=== PATIENT | female | born 1955 | race Caucasian/White ===

== ENCOUNTER 2017-11-17 17:18 | Inpatient (IN) | payer MEDICAID ==
[2017-11-17] MEDS ORDERED: ALBUTEROL 2.5 MG/3 ML NEB SOL ONE (18:11)
[2017-11-17] MEDS ORDERED: IPRATROPIUM BROM 0.5MG/2.5ML ONE (18:11)
[2017-11-17] MEDS ORDERED: NA CHLORIDE 0.9% 500 ML ONE (18:11)
[2017-11-17 18:29] LABS: Absolute Lymphocytes (CBC) 1.2 K/uL (0.7-4.9); Absolute Monocytes 0.4 K/uL (0.1-1.3); Absolute Neutrophil 3.1 K/uL (1.8-8.0); Basophils % 0.7 % (0-1.3); Eosinophils % 1.1 % (0-4.4); Lymphocytes % 25.8 % (15.3-44.8); MCH 30.3 pg (27.0-35.0); MCV 87.5 fL (80-100); MPV 9.1 fL (7.6-11.3); Monocytes % 7.6 % (3.3-12.3); Protime INR 1.07
[2017-11-17] MEDS ORDERED: ASPIRIN 81 MG CHEWABLE TABLET ONE (18:34)
[2017-11-17 18:46] LABS: Albumin 3.6 g/dL (3.4-5.0); Bilirubin Direct 0.1 mg/dL (0-0.2); Bilirubin Total 0.4 mg/dL (0.2-1.0); Potassium 3.5 mmol/L (3.5-5.1); Protein, Total 7.7 g/dL (6.4-8.2)
[2017-11-17 18:47] LABS: Troponin (Emerg Dept Use Only) 0.02 ng/mL (0.0-0.045)
[2017-11-17] MEDS ORDERED: cloNIDine HCl 0.1 MG TAB ONE (19:53)
--- NOTE | 2017-11-17 20:24 | RAD REPORT ---
EXAM DESCRIPTION: RAD - Chest Single View - 11/17/2017 5:57 pm CLINICAL HISTORY: Cough and congestion, fever COMPARISON: May 2011 TECHNIQUE: AP portable chest image was obtained 1753 hours . FINDINGS: No focal mass, consolidation or significant failure finding. Patient has chronic interstit ial lung disease. Interstitial markings are prominent and can mask mild failure or volume overload. H eart size is normal. Upper lobe vasculature within normal limits. No measurable pleural effusion and no pneumothorax. No acute bony abnormality seen. No acute aortic findings suspected. IMPRESSION: Chronic interstitial lung disease is evident similar to the May imaging. This could po tentially mask early failure or infiltrate. No cardiomegaly or significant failure. No focal lung parenchymal process.
--- NOTE | 2017-11-17 20:48 | EDPHYS ---
Physician Documentation [facility] Name: Vickie Meza Age: 62 yrs Sex: Female : 1955 Arrival Date: 11/17/2017 Time: 17:20 Bed 26 Private MD: ED Physician Alphonse Morales HPI: 11/17 17:50 This 62 yrs old Female presents to ER via Ambulatory with complaints of cp Fever, Chest Congestion. 17:50 The patient reports fever, that was measured at 104 degrees Fahrenheit. cp 17:50 Onset: The symptoms/episode began/occurred 1 day(s) ago. cp 17:50 Associated signs and symptoms: Pertinent positives: cough, Pertinent negatives: cp abdominal pain, chest pain, sinus congestion, swelling, vomiting. Severity of symptoms: in the emergency department the symptoms are unchanged despite home interventions. Historical: - Allergies: 17:24 PENICILLINS; sv 17:24 Morphine; sv 17:24 Valium; sv 17:24 Demerol; sv - Home Meds: 19:14 ProAir HFA 90 mcg/actuation inhalation HFAA 1 puff q 6 hr s prnjh [Active]; iw sulfasalazine 500 mg Oral tab 2 tab twice a day [Active]; hydrochlorothiazide 25 mg Oral tab 1 tab once daily [Active]; clonidine HCl 0.1 mg Oral tab 1 tab 3 times per day [Active]; metoprolol tartrate 25 mg Oral tab 1 tab 2 times per day [Active]; leflunomide 20 mg oral tab 1 tab once daily [Active]; gabapentin 300 mg oral cap 1 cap twice a day [Active]; oxybutynin chloride 5 mg Oral tab 1 tab 2 times per day [Active]; - PMHx: 17:24 COPD; Hypertension; Arthritis; sv - PSHx: 17:24 elbow; Cholecystectomy; Tubal ligation; sv - Immunization history:: Flu vaccine is not up to date. - Social history:: Smoking status: Patient/guardian denies using tobacco, the patient reports quitting approximately 2 years ago. - Ebola Screening: : No symptoms or risks identified at this time. ROS: 18:00 Constitutional: Negative for body aches, fever, poor PO intake. cp 18:00 Eyes: Negative for injury, pain, redness, and discharge. cp 18:00 ENT: Negative for drainage from ear(s), ear pain, sore throat, difficulty swallowing, difficulty handling secretions. 18:00 Cardiovascular: Negative for chest pain, edema, palpitations. 18:00 Respiratory: Positive for cough, with no reported sputum, wheezing. 18:00 Abdomen/GI: Negative for abdominal pain, black/tarry stool, rectal bleeding. cp 18:00 Back: Negative for radiated pain. 18:00 : Negative for urinary symptoms. 18:00 Skin: Negative for cellulitis, rash. 18:00 Neuro: Negative for altered mental status, dizziness, headache, weakness. 18:00 All other systems are negative. cp Exam: 18:05 ECG was reviewed by the Attending Physician. cp 18:05 Constitutional: The patient appears in no acute distress, alert, awake, cp non-diaphoretic, non-toxic, well developed, well nourished. 18:05 Head/Face: Normocephalic, atraumatic. cp 18:05 Eyes: Pupils equal round and reactive to light, extra-ocular motions intact. Lids and cp lashes normal. Conjunctiva and sclera are non-icteric and not injected. Cornea within normal limits. Periorbital areas with no swelling, redness, or edema. ENT: Nares patent. No nasal discharge, no septal abnormalities noted. Tympanic membranes are normal and external auditory canals are clear. Oropharynx with no redness, swelling, or masses, exudates, or evidence of obstruction, uvula midline. Mucous membranes moist. Neck: Trachea midline, no thyromegaly or masses palpated, and no cervical lymphadenopathy. Supple, full range of motion without nuchal rigidity, or vertebral point tenderness. No Meningismus. 18:05 Chest/axilla: Inspection: normal, Palpation: is normal, no crepitus, no tenderness. 18:05 Cardiovascular: Rate: normal, Rhythm: regular, Edema: is not appreciated, JVD: is not appreciated. 18:05 Respiratory: the patient does not display signs of respiratory distress, Respirations: labored breathing, is not present, intercostal retractions, are absent, shallow respirations, are not present, Breath sounds: decreased breath sounds, that are moderate, are located in both bases, stridor, is not appreciated, + upper airway congestion. wheezing: that is mild, is heard diffusely. 18:05 Abdomen/GI: Inspection: abdomen appears normal, Bowel sounds: active, all quadrants, Palpation: abdomen is soft and non-tender, in all quadrants, rebound tenderness, is not appreciated, voluntary guarding, is not appreciated, involuntary guarding, is not appreciated. 18:05 Back: pain, is absent, ROM is normal, CVA tenderness, is absent. 18:05 Skin: cellulitis, is not appreciated, no rash present. 18:05 Neuro: Orientation: to person, place \T\ time. Mentation: lucid, able to follow commands, Cerebellar function: is grossly normal, Motor: moves all fours, strength is normal, Sensation: is normal. Vital Signs: 17:24 BP 210 / 67; Pulse 89; Resp 22; Temp 98.9(O); Pulse Ox 95% ; Height 5 ft. 4 in. (162.56 sv cm); 18:08 BP 178 / 60; Pulse 75; Resp 22; Pulse Ox 100% ; kr2 19:05 BP 197 / 55; Pulse 80; Resp 24; Temp 98.8(O); Pulse Ox 96% on R/A; Pain 0/10; iw 19:50 BP 180 / 59; Pulse 71; Resp 20; Pulse Ox 96% on R/A; fc 20:25 BP 170 / 55; Pulse 80; Resp 22; Pulse Ox 94% on R/A; fc 21:02 BP 182 / 55; Pulse 76; Resp 22; Pulse Ox 93% on R/A; fc 22:00 BP 143 / 52; Pulse 68; Resp 22; Pulse Ox 94% on R/A; Pain 2/10; fc 22:28 BP 162 / 63; Pulse 66; Resp 22; Temp 98.8(O); Pulse Ox 94% on R/A; Pain 2/10; fc MDM: 17:33 Patient medically screened. cp 18:00 Differential diagnosis: viral Infection, bacterial infection, bronchitis, pneumonia cp CHF, pulmonary embolism. 20:35 Data reviewed: vital signs, nurses notes, lab test result(s), EKG, radiologic studies, cp plain films, and as a result, I will admit patient. 20:35 Test interpretation: by ED physician or midlevel provider: ECG, plain radiologic cp studies. Response to treatment: the patient's symptoms have mildly improved after treatment. 20:38 Physician consultation: Cedric Steward MD was called at 20:38, was contacted at 20:38, regarding admission, to the telemetry unit. patient's condition. 11/17 17:44 Order name: Basic Metabolic Panel; Complete Time: 18:55 11/17 18:55 Interpretation: Normal except: CL 110; GFR 50. 11/17 17:44 Order name: CBC with Diff; Complete Time: 18:55 11/17 18:55 Interpretation: Normal except: HCT 35.0; PLT 149. 11/17 17:44 Order name: LFT's; Complete Time: 18:55 11/17 19:28 Interpretation: Normal except: GLOB 4.1; A/G 0.9. 11/17 17:44 Order name: Magnesium; Complete Time: 18:55 11/17 17:44 Order name: NT PRO-BNP; Complete Time: 18:55 11/17 19:13 Interpretation: Abnormal: NT PRO-BNP 715. 11/17 17:44 Order name: PT-INR; Complete Time: 18:55 11/17 19:59 Interpretation: Abnormal: PT 12.6. 11/17 17:44 Order name: Troponin (emerg Dept Use Only); Complete Time: 18:55 11/17 17:44 Order name: XRAY Chest (1 view); Complete Time: 20:28 11/17 17:44 Order name: Blood Culture Adult (2) 11/17 17:44 Order name: Influenza Screen (a \T\ B); Complete Time: 19:28 11/17 19:28 Interpretation: Reviewed. 11/17 17:44 Order name: Lactate; Complete Time: 18:55 11/17 20:00 Interpretation: LAC 0.8; Reviewed. 11/17 17:44 Order name: Procalcitonin; Complete Time: 19:13 11/17 19:13 Interpretation: Reviewed. 11/17 17:44 Order name: EKG; Complete Time: 17:44 11/17 17:44 Order name: Cardiac monitoring; Complete Time: 18:20 11/17 17:44 Order name: EKG - Nurse/Tech; Complete Time: 18:20 11/17 17:44 Order name: IV Saline Lock; Complete Time: 18:21 11/17 17:44 Order name: Labs collected and sent; Complete Time: 18:21 cp 11/17 17:44 Order name: O2 Per Protocol; Complete Time: 18:21 cp 11/17 17:44 Order name: O2 Sat Monitoring; Complete Time: 18:22 cp EC:05 Rate is 74 beats/min. Rhythm is regular. WV interval is normal. QRS interval is normal. cp QT interval is normal. Interpreted by me. Reviewed by me. Administered Medications: 18:08 Drug: NS 0.9% 500 ml Route: IV; Rate: bolus; Site: right antecubital; kr2 19:49 Follow up: Response: No adverse reaction; No change in condition; IV Status: Completed fc infusion; IV Intake: 500ml 18:08 Drug: Albuterol - atroVENT (3:1) (2.5 mg - 0.5 mg) 3 ml Route: Nebulizer; kr2 19:49 Follow up: Response: No adverse reaction; Marked relief of symptoms fc 18:33 Drug: Aspirin Chewable Tablet 324 mg Route: PO; iw 19:49 Follow up: Response: No adverse reaction; No change in condition fc 19:49 Drug: cloNIDine 0.2 mg Route: PO; fc 21:03 Follow up: Response: No adverse reaction; No change in condition fc Disposition: 11/17/17 20:47 Hospitalization ordered by Cedric Steward for Observation. Preliminary diagnosis are Chronic obstructive pulmonary disease with acute lower respiratory infection, Hypertensive heart disease. - Bed requested for Telemetry/MedSurg (observation). - Status is Observation. fc - Condition is Stable. - Problem is an acute exacerbation. - Symptoms have improved. UTI on Admission? No Addendum: 11/19/2017 13:38 Co-signature as Attending Physician, Alphonse Morales MD I agree with the assessment and k dr plan of care. Signatures: Dispatcher [employer] EDMayra Roberson RN RN Alphonse Morales MD MD [facility] Maria Elena Varghese RN RN Laura Camp RN RN Jesus Soliz PA PA cp Mag Hernandez RN RN kr2 Tyrese Key mw2 Corrections: (The following items were deleted from the chart) 11/17 21:41 20:47 Hospitalization Ordered by Cedric Steward MD for Observation. Preliminary mw2 diagnosis is Chronic obstructive pulmonary disease with acute lower respiratory infection; Hypertensive heart disease. Bed requested for Telemetry/MedSurg (observation). Status is Observation. Condition is Stable. Problem is an acute exacerbation. Symptoms have improved. UTI on Admission? No. cp 23:24 21:41 11/17/2017 20:47 Hospitalization Ordered by Cedric Steward MD for Observation. fc Preliminary diagnosis is Chronic obstructive pulmonary disease with acute lower respiratory infection; Hypertensive heart disease. Bed requested for Telemetry/MedSurg (observation). Status is Observation. Condition is Stable. Problem is an acute exacerbation. Symptoms have improved. UTI on Admission? No. mw2
--- NOTE | 2017-11-17 20:48 | ER ---
Nurse's Notes [facility] Name: Vickie Meza Age: 62 yrs Sex: Female : 1955 Arrival Date: 11/17/2017 Time: 17:20 Bed 26 Private MD: Diagnosis: Chronic obstructive pulmonary disease with acute lower respiratory infection;Hypertensive heart disease Presentation: 11/17 17:22 Presenting complaint: Patient states: chest congestion, fever x 1 day. Transition of sv care: patient was not received from another setting of care. Onset of symptoms was November 16, 2017. Care prior to arrival: Medication(s) given: Tylenol, taken this morning. 17:22 Method Of Arrival: Ambulatory sv 17:22 Acuity: JULIÁN 3 sv 22:32 Risk Assessment: Do you want to hurt yourself or someone else? Patient reports no fc desire to harm self or others. Initial Sepsis Screen: Does the patient meet any 2 criteria? RR > 20 per min. Yes Does the patient have a suspected source of infection? Yes: Productive cough/pneumonia. Historical: - Allergies: 17:24 PENICILLINS; sv 17:24 Morphine; sv 17:24 Valium; sv 17:24 Demerol; sv - Home Meds: 19:14 ProAir HFA 90 mcg/actuation inhalation HFAA 1 puff q 6 hr s prnjh [Active]; iw sulfasalazine 500 mg Oral tab 2 tab twice a day [Active]; hydrochlorothiazide 25 mg Oral tab 1 tab once daily [Active]; clonidine HCl 0.1 mg Oral tab 1 tab 3 times per day [Active]; metoprolol tartrate 25 mg Oral tab 1 tab 2 times per day [Active]; leflunomide 20 mg oral tab 1 tab once daily [Active]; gabapentin 300 mg oral cap 1 cap twice a day [Active]; oxybutynin chloride 5 mg Oral tab 1 tab 2 times per day [Active]; - PMHx: 17:24 COPD; Hypertension; Arthritis; sv - PSHx: 17:24 elbow; Cholecystectomy; Tubal ligation; sv - Immunization history:: Flu vaccine is not up to date. - Social history:: Smoking status: Patient/guardian denies using tobacco, the patient reports quitting approximately 2 years ago. - Ebola Screening: : No symptoms or risks identified at this time. Screenin:19 Abuse screen: Denies threats or abuse. Denies injuries from another. Nutritional iw screening: No deficits noted. Tuberculosis screening: No symptoms or risk factors identified. Fall Risk IV access (20 points). Assessment: 17:50 General: Appears in no apparent distress. Behavior is calm, cooperative. Neuro: Level iw of Consciousness is awake, alert, obeys commands. 17:50 General: Reports fever for 1-2 days, feeling ill for 1-2 days, fatigue for 1-2 days. iw Pain: Denies pain. Cardiovascular: Denies chest pain, Capillary refill < 3 seconds in bilateral fingers Patient's skin is warm and dry. Respiratory: Breath sounds with rhonchi in right upper lobe, left upper lobe, right middle lobe, left lower lobe, left posterior upper lobe, right posterior upper lobe, left posterior lower lobe and right posterior middle lobe. GI: Abdomen is non-distended. Derm: Skin is intact, is healthy with good turgor. Musculoskeletal: Range of motion: intact in all extremities. 19:09 General: Appears uncomfortable, obese, Behavior is calm, cooperative, anxious. Pain: iw Denies pain. Neuro: Level of Consciousness is awake, alert, obeys commands, Oriented to person, place, time, situation. Cardiovascular: Denies chest pain, Heart tones S1 S2 Capillary refill < 3 seconds. Respiratory: Reports cough that is non-productive, Airway is patent Trachea midline Respiratory effort is shallow, Respiratory pattern is symmetrical, Breath sounds with rhonchi bilaterally. Onset: The symptoms/episode began/occurred gradually. GI: Abdomen is non-distended, obese, Bowel sounds present X 4 quads. : No deficits noted. EENT: No deficits noted. Derm: Skin is intact, Skin is dry, Skin is pink, Skin temperature is warm. Musculoskeletal: Capillary refill < 3 seconds, Range of motion: intact in all extremities. 19:25 Reassessment: Above assessment done by Loan Varghese RN. fc 20:15 Reassessment: No changes from previously documented assessment. Patient and/or family fc updated on plan of care and expected duration. Pain level reassessed. Patient is alert, oriented x 3, equal unlabored respirations, skin warm/dry/pink. Pending test results. 20:33 Reassessment: Page PA at bedside to discuss test results with family and pt. fc 21:00 Reassessment: No changes from previously documented assessment. Patient and/or family fc updated on plan of care and expected duration. Pain level reassessed. Patient is alert, oriented x 3, equal unlabored respirations, skin warm/dry/pink. Pt is up for admission and family is aware. 22:00 Reassessment: No changes from previously documented assessment. Patient and/or family fc updated on plan of care and expected duration. Pain level reassessed. Patient is alert, oriented x 3, equal unlabored respirations, skin warm/dry/pink. 22:20 Reassessment: No changes from previously documented assessment. Patient and/or family fc updated on plan of care and expected duration. Pain level reassessed. Patient is alert, oriented x 3, equal unlabored respirations, skin warm/dry/pink. Pt pending admission orders. Vital Signs: 17:24 BP 210 / 67; Pulse 89; Resp 22; Temp 98.9(O); Pulse Ox 95% ; Height 5 ft. 4 in. (162.56 sv cm); 18:08 BP 178 / 60; Pulse 75; Resp 22; Pulse Ox 100% ; kr2 19:05 BP 197 / 55; Pulse 80; Resp 24; Temp 98.8(O); Pulse Ox 96% on R/A; Pain 0/10; iw 19:50 BP 180 / 59; Pulse 71; Resp 20; Pulse Ox 96% on R/A; fc 20:25 BP 170 / 55; Pulse 80; Resp 22; Pulse Ox 94% on R/A; fc 21:02 BP 182 / 55; Pulse 76; Resp 22; Pulse Ox 93% on R/A; fc 22:00 BP 143 / 52; Pulse 68; Resp 22; Pulse Ox 94% on R/A; Pain 2/10; fc 22:28 BP 162 / 63; Pulse 66; Resp 22; Temp 98.8(O); Pulse Ox 94% on R/A; Pain 2/10; fc ED Course: 17:20 Patient arrived in ED. as 17:23 Triage completed. sv 17:24 Arm band placed on. sv 17:33 Jesus Soliz PA is PHCP. cp 17:33 Alphonse Morales MD is Attending Physician. cp 17:33 Laura Camp, MANDEEP is Primary Nurse. iw 17:55 X-ray completed. Portable x-ray completed in exam room. Patient tolerated procedure ls3 well. 17:57 XRAY Chest (1 view) In Process Unspecified. EDMS 18:00 Initial lab(s) drawn, by me, sent to lab. First set of blood cultures drawn. Inserted iw saline lock: 20 gauge in right antecubital area, using aseptic technique. Blood collected. 18:05 EKG done, by surveying technician. reviewed by Jesus KEITH. sm3 19:11 Patient has correct armband on for positive identification. Bed in low position. Call iw light in reach. 20:46 Cedric Steward MD is Hospitalizing Provider. cp 22:32 No provider procedures requiring assistance completed. Patient admitted, IV remains in fc place. Administered Medications: 18:08 Drug: NS 0.9% 500 ml Route: IV; Rate: bolus; Site: right antecubital; kr2 19:49 Follow up: Response: No adverse reaction; No change in condition; IV Status: Completed fc infusion; IV Intake: 500ml 18:08 Drug: Albuterol - atroVENT (3:1) (2.5 mg - 0.5 mg) 3 ml Route: Nebulizer; kr2 19:49 Follow up: Response: No adverse reaction; Marked relief of symptoms fc 18:33 Drug: Aspirin Chewable Tablet 324 mg Route: PO; iw 19:49 Follow up: Response: No adverse reaction; No change in condition fc 19:49 Drug: cloNIDine 0.2 mg Route: PO; fc 21:03 Follow up: Response: No adverse reaction; No change in condition fc Intake: 19:49 IV: 500ml; Total: 500ml. fc Outcome: 20:47 Decision to Hospitalize by Provider. cp 22:31 Admitted to Tele accompanied by tech, via wheelchair, room 229, with chart, Report fc called to Ella KAUFMAN 22:31 Condition: good 22:31 Discharge instructions given to patient, family, Instructed on the need for admit, Demonstrated understanding of instructions. 23:24 Patient left the ED. fc Signatures: Dispatcher [employer] EDMS Mayra Samuel RN RN Maria Elena Varghese RN RN [place] Irene, RN RN Jesus Soliz PA PA cp Mag Hernandez RN RN kr2 Pao Root sm3 Paul Good ls3
[2017-11-17] MEDS ORDERED: MAGNESIUM HYDROXIDE 8% 30 ML PO PRN (22:14)
[2017-11-17] MEDS ORDERED: ONDANSETRON 4 MG/2 ML VIAL IV PRN (22:14)
[2017-11-17] MEDS ORDERED: ACETAMINOPHEN 500 MG TAB PO PRN (22:14)
[2017-11-17] MEDS ORDERED: ALPRAZOLAM 0.25 MG TABLET PO PRN (22:14)
[2017-11-17] MEDS ORDERED: ALBUTEROL INHALER 60 PUFF/8 GM IH PRN (22:16)
[2017-11-17 23:21] VITALS: BMI 32.4
[2017-11-17] MEDS ORDERED: PNEUMOCOCCAL VACCINE 0.5 ML IMVAC ONE (23:26)
[2017-11-17] MEDS ORDERED: INFLUENZA VACCINE (for 3y+) 0.5 ML DOSE IMVAC ONE (23:26)
[2017-11-18] MEDS ORDERED: POTASSIUM 25 MEQ EFFERV TAB PO ONE ×2 (00:11→09:00)
[2017-11-18 00:50] LABS: Urine Appearance CLEAR; Urine Bilirubin NEGATIVE (NEG); Urine Blood TRACE (NEG); Urine Color YELLOW; Urine Glucose NEGATIVE (NEG); Urine Protein TRACE (NEG); Urine Urobilinogen 0.2 mg/dL (0.2-1.0)
[2017-11-18 00:52] LABS: Urine Microscopic Reflex ORDER UMIC
[2017-11-18 01:18] LABS: Urine Bacteria <20 /HPF (<20); Urine Culture Reflex Order NOT NEEDED; Urine RBC <5 /HPF (NONE SEEN)
[2017-11-18] MEDS: ALBUTEROL 2.5 MG/3 ML NEB SOL NEB SCH ×4 (03:06→19:40)
[2017-11-18] MEDS: IPRATROPIUM BROM 0.5MG/2.5ML NEB SCH ×4 (03:06→19:40)
[2017-11-18] MEDS ORDERED: ALBUTEROL 2.5 MG/3 ML NEB SOL NEB ONE (04:25)
[2017-11-18] MEDS ORDERED: IPRATROPIUM BROM 0.5MG/2.5ML NEB ONE (04:25)
[2017-11-18] MEDS ORDERED: METHYLPREDNISOLONE 125 MG INJ IV ONE (04:25)
[2017-11-18] MEDS ORDERED: cloNIDine HCl 0.1 MG TAB PO ONE (04:26)
[2017-11-18 05:25] LABS: Absolute Lymphocytes (CBC) 1.5 K/uL (0.7-4.9); Absolute Monocytes 0.4 K/uL (0.1-1.3); Absolute Neutrophil 2.9 K/uL (1.8-8.0); Basophils % 0.8 % (0-1.3); Eosinophils % 1.1 % (0-4.4); Hematocrit 33.6 % (36.0-45.0); Lymphocytes % 30.9 % (15.3-44.8); MCH 30.3 pg (27.0-35.0); MPV 9.2 fL (7.6-11.3); Monocytes % 7.7 % (3.3-12.3); RBC Red Blood Cell Count 3.82 M/uL (3.86-4.86)
[2017-11-18 05:35] LABS: Albumin 3.3 g/dL (3.4-5.0); Bilirubin Total 0.4 mg/dL (0.2-1.0); Phosphorus 3.2 mg/dL (2.5-4.9); Potassium 3.5 mmol/L (3.5-5.1)
[2017-11-18] MEDS: FUROSEMIDE 20 MG/ 2ML VIAL IV SCH ×2 (06:14→12:11)
--- NOTE | 2017-11-18 08:14 | EKG ---
Test Date: 2017-11-17 Test Time: 18:01:49 Byproducts Extractor: NEEL MEASUREMENT RESULTS: Intervals: Rate: 74 VA: 164 QRSD: 90 QT: 394 QTc: 437 [place]: P: 63 VA: 164 QRS: 55 T: 85 INTERPRETIVE STATEMENTS: Normal sinus rhythm Cannot rule out Anterior infarct, age undetermined Abnormal ECG Compared to ECG 08/23/2012 12:45:44 Possible myocardial infarct finding now present Sinus bradycardia no longer present Electronically Signed On 11-18-17 08:13:58 CDT by Patricio Fisher
--- NOTE | 2017-11-18 08:23 | P.HP ---
Certification for Inpatient Patient admitted to: Inpatient With expected LOS: >2 Midnights Patient will require the following post-hospital care: None Practitioner: I am a practitioner with admitting privileges, knowledge of patient current condition, hospital course, and medical plan of care. Services: Services provided to patient in accordance with Admission requirements found in Title 42 Section 412.3 of the Code of Federal Regulations Patient History Date of Service: 11/17/17 Reason for admission: Shortness of breath History of Present Illness: Patient is a 62-year-old female came to the hospital with shortness of breath. Patient has longstanding COPD. Patient does not really follow with a physician for this. Patient sees her primary care provider and gets her prescriptions. Patient's respiratory status was worse over the last couple of days so the family brought her in for workup. Patient blood pressure was elevated. Patient was wheezing diffusely. Patient was started on steroids and nebulizer treatments. Patient was admitted to the hospital for further workup. Allergies diazepam [From Valium] Allergy (Mild, Verified 05/20/11 10:14) Hives/Rash meperidine HCl [From Demerol] Allergy (Mild, Verified 05/20/11 10:14) Hives/Rash morphine Allergy (Mild, Verified 05/20/11 10:14) Hives/Rash Penicillins Allergy (Mild, Verified 05/20/11 10:14) Hives/Rash Home Medications: Albuterol Sulfate [Proair Hfa] 8.5 gm IH Q6HP PRN 11/17/17 Clonidine HCl [Catapres] 0.1 mg PO TID 11/17/17 Gabapentin 300 mg PO BID 11/17/17 Leflunomide 20 mg PO DAILY 11/17/17 Metoprolol Tartrate 25 mg PO BID 11/17/17 Oxybutynin Chloride 5 mg PO BID 11/17/17 Sulfasalazine [Azulfidine] 1,000 mg PO BID 11/17/17 hydroCHLOROthiazide [Hydrochlorothiazide] 25 mg PO DAILY 11/17/17 - Past Medical/Surgical History Has patient received pneumonia vaccine in the past: No Diabetic: No -: COPD -: HTN -: Rheumatoid Arthritis -: Indira -: Elbow surg - left -: Tubal - Family History Father Family History: Reviewed- Non-Contributory - Social History Smoking Status: Former smoker Alcohol use: Yes CD- Drugs: No Caffeine use: Yes Place of Residence: Home Review of Systems 10-point ROS is otherwise unremarkable Physical Examination - Vital Signs Temperature: 98 F Blood Pressure: 133/62 Pulse: 58 Respirations: 20 Pulse Ox (%): 97 - Physical Exam General: Alert, In no apparent distress, Oriented x3 HEENT: Atraumatic, PERRLA, Mucous membr. moist/pink, EOMI, Sclerae nonicteric Neck: Supple, 2+ carotid pulse no bruit, No LAD, Without JVD or thyroid abnormality Respiratory: Diminished, Expiratory wheezes Cardiovascular: Regular rate/rhythm, Normal S1 S2, No murmurs Gastrointestinal: Normal bowel sounds, Soft and benign, Non-distended, No tenderness Musculoskeletal: No clubbing, No swelling, No tenderness Integumentary: No rashes Neurological: Normal gait, Normal speech, Normal strength at 5/5 x4 extr, Normal tone, Sensation intact, Cranial nerves 3-12 intact, Normal affect Lymphatics: No axilla or inguinal lymphadenopathy - Studies Laboratory Data (last 24 hrs) 11/17/17 18:00: PT 12.6 H, INR 1.07 11/17/17 18:00: WBC 4.8, Hgb 12.1, Hct 35.0 L, Plt Count 149 L 11/17/17 18:00: Sodium 142, Potassium 3.5, BUN 14, Creatinine 1.10, Glucose 106 , Magnesium 2.0, Total Bilirubin 0.4, AST 24, ALT 35, Alkaline Phosphatase 94 Microbiology Data (last 24 hrs): 11/17/17 18:00 Nasopharnyx Influenza Type A Antigen Screen - Final 11/17/17 18:00 Nasopharnyx Influenza Type B Antigen Screen - Final Assessment & Plan - Problems (Diagnosis) (1) Diastolic dysfunction with acute on chronic heart failure Current Visit: Yes Status: Acute (2) COPD with acute exacerbation Current Visit: Yes Status: Acute - Plan Plan: 1. Continue with albuterol and Atrovent nebs 2. Continue with IV steroids 3. Outpatient pulmonary function testing 4. Pulmonary follow-up if symptoms do not improve 5. Room air O2 sats 6. Repeat chest x-ray in the morning 7. Echocardiogram to assess cardiac function and to evaluate for impaired relaxation; Lasix x1 8. GI and DVT prophylaxis Discharge Plan: Home Plan to discharge in: Greater than 2 days - Advance Directives Does patient have a Living Will: No Does patient have a Durable POA for Healthcare: No - Code Status/Comfort Care Code Status Assessed: Yes Code Status: Full Code Critical Care: No Time Spent Managing PTS Care (In Minutes): 50
[2017-11-18] MEDS: SULFASALAZINE 500 MG E.C. TAB PO SCH ×2 (08:43→21:26)
[2017-11-18] MEDS: ENOXAPARIN 40 MG/0.4 ML SQ SCH (08:44)
[2017-11-18] MEDS: hydroCHLOROthiazide 25 MG TAB PO SCH (08:45)
[2017-11-18] MEDS: GABAPENTIN 300 MG CAP PO SCH ×2 (08:46→21:18)
[2017-11-18] MEDS: OXYBUTYNIN CHLORIDE 5 MG TAB PO SCH ×2 (08:47→21:21)
[2017-11-18] MEDS: METOPROLOL TAR 25 MG TAB PO SCH ×2 (09:00→21:20)
[2017-11-18] MEDS ORDERED: AZITHROMYCIN IV 250 MG in NA CHLORIDE 0.9% 250 ML IVPB SCH (09:00)
[2017-11-18] MEDS: cloNIDine HCl 0.1 MG TAB PO SCH ×3 (09:00→21:17)
[2017-11-18] MEDS ORDERED: HOME MED 1 EA UNK (Leflunomide [Leflunomide] 20 MG) PO SCH (09:00)
--- NOTE | 2017-11-18 11:51 | P.PN ---
Subjective Date of Service: 11/18/17 Chief Complaint: Shortness of breath Patient seen and examined at bedside with RN. Chart reviewed. Case discussed with family members at bedside. Currently patient is doing much better than before. 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 Only uses albuterol. Does have prescription for nebulizers at home however has ran out of nebulizing medication and it. Review of Systems 10-point ROS is otherwise unremarkable Physical Examination - Vital Signs Temperature: 98 F Blood Pressure: 145/67 Pulse: 64 Respirations: 20 Pulse Ox (%): 97 - Physical Exam General: Alert, In no apparent distress HEENT: Atraumatic, PERRLA, EOMI Neck: Supple, JVD not distended Respiratory: Normal air movement, Expiratory wheezes, Inspiratory wheezes Cardiovascular: Regular rate/rhythm, Normal S1 S2 Gastrointestinal: Normal bowel sounds, No tenderness Musculoskeletal: No tenderness Integumentary: No rashes Neurological: Normal speech, Normal tone, Normal affect Lymphatics: No axilla or inguinal lymphadenopathy - Studies Laboratory Data (last 24 hrs) 11/17/17 18:00: PT 12.6 H, INR 1.07 11/17/17 18:00: WBC 4.8, Hgb 12.1, Hct 35.0 L, Plt Count 149 L 11/17/17 18:00: Sodium 142, Potassium 3.5, BUN 14, Creatinine 1.10, Glucose 106 , Magnesium 2.0, Total Bilirubin 0.4, AST 24, ALT 35, Alkaline Phosphatase 94 Microbiology Data (last 24 hrs): 11/17/17 18:00 Nasopharnyx Influenza Type A Antigen Screen - Final 11/17/17 18:00 Nasopharnyx Influenza Type B Antigen Screen - Final Medications List Reviewed: Yes Assessment And Plan - Current Problems (Diagnosis) (1) COPD with acute exacerbation Onset Date: 11/18/17 Current Visit: Yes Status: Acute Plan: COPD with acute exacerbation -DuoNeb, steroids, oxygen thus far. Maintained saturations at 88-92%. Will wean oxygen as tolerated. -on discharge patient will need a prescription for long-acting beta agonists along with steroids. -will have patient follow up with pulmonology outpatient. -echocardiogram were ordered to rule out any diastolic or systolic dysfunction at this time. - Plan Pending clinical improvement at this time Discharge Plan: Home Plan to discharge in: 48 Hours - Code Status/Comfort Care Code Status Assessed: Yes Critical Care: No
[2017-11-18] MEDS: METHYLPREDNISOLONE 125 MG INJ IV SCH ×2 (12:11→17:34)
--- NOTE | 2017-11-18 14:30 | ECHO ---
HEIGHT: 5 ft 4 in WEIGHT: 189 lb 0 oz DATE OF STUDY: 11/18/[address]: 2-DIMENSIONAL: YES M.MODE: YES DOPPLER: YES COLOR FLOW: YES TDS: YES PORTABLE: NO DEFINITY: NO BUBBLE STUDY: NO DIAGNOSIS: CONGESTIVE HEART FAILURE. CARDIAC HISTORY: CATHERIZATION: NO SURGERY: NO PROSTHETIC VALVE: NO PACEMAKER: NO MEASUREMENTS (cm) DIASTOLIC (NORMALS) SYSTOLIC (NORMALS) IVSd 1.0 (0.6-1.2) LA Diam 3.8 (1.9-4.0) LVEF 75% LVIDd 5.5 (3.5-5.7) LVIDs 3.0 (2.0-3.5) %FS 45% LVPWd 1.2 (0.6-1.2) Ao Diam 2.6 (2.0-3.7) 2 DIMENSIONAL ASSESSMENT: RIGHT ATRIUM: NORMAL LEFT ATRIUM: NORMAL RIGHT VENTRICLE: NORMAL LEFT VENTRICLE: NORMAL TRICUSPID VALVE: NORMAL MITRAL VALVE: NORMAL PULMONIC VALVE: NORMAL AORTIC VALVE: NORMAL PERICARDIAL EFFUSION: NONE AORTIC ROOT: NORMAL LEFT VENTRICULAR WALL MOTION: NORMAL. DOPPLER/COLOR FLOW: TRACE TRICUSPID REGURGITATION. NORMAL RIGHT VENTRICULAR SYSTOLIC PRESSURE. MILD AORTIC REGURGITATION. COMMENTS: NORMAL LEFT VENTRICULAR EJECTION FRACTION. TRACE TRICUSPID REGURGITATION. MILD AORTIC REGURGITATION. TECHNICALLY DIFFICULT STUDY. TECHNOLOGIST: JOSH MCLAUGHLIN RDCS
[2017-11-19] MEDS: METHYLPREDNISOLONE 125 MG INJ IV SCH ×2 (01:09→06:21)
[2017-11-19 05:46] LABS: Potassium 3.6 mmol/L (3.5-5.1)
[2017-11-19] MEDS ORDERED: POTASSIUM 25 MEQ EFFERV TAB PO ONE (05:54)
[2017-11-19] MEDS: ALBUTEROL 2.5 MG/3 ML NEB SOL NEB SCH (07:40)
[2017-11-19] MEDS: IPRATROPIUM BROM 0.5MG/2.5ML NEB SCH (07:40)
[2017-11-19] MEDS: ENOXAPARIN 40 MG/0.4 ML SQ SCH (08:42)
[2017-11-19] MEDS: hydroCHLOROthiazide 25 MG TAB PO SCH (08:42)
[2017-11-19] MEDS: METOPROLOL TAR 25 MG TAB PO SCH (08:43)
[2017-11-19] MEDS: FUROSEMIDE 20 MG/ 2ML VIAL IV SCH (08:43)
[2017-11-19] MEDS: cloNIDine HCl 0.1 MG TAB PO SCH (08:44)
[2017-11-19] MEDS: GABAPENTIN 300 MG CAP PO SCH (08:44)
[2017-11-19] MEDS: OXYBUTYNIN CHLORIDE 5 MG TAB PO SCH (08:44)
[2017-11-19] MEDS: SULFASALAZINE 500 MG E.C. TAB PO SCH (08:45)
[2017-11-19 09:51] VITALS: O2SAT 92
[2017-11-19 14:27] VITALS: BP 151/53; TEMP 97.8
--- NOTE | 2017-11-19 17:00 | P.DS ---
Admission Date: 11/17/17 Discharge Date: 11/19/17 Disposition: ROUTINE DISCHARGE Discharge Condition: GOOD Reason for Admission: Shortness of breath - Problems (1) COPD with acute exacerbation Onset Date: 11/18/17 Status: Acute Brief History of Present Illness: Patient is a 62-year-old female came to the hospital with shortness of breath. Patient has longstanding COPD. Patient does not really follow with a physician for this. Patient sees her primary care provider and gets her prescriptions. Patient's respiratory status was worse over the last couple of days so the family brought her in for workup. Patient blood pressure was elevated. Patient was wheezing diffusely. Patient was started on steroids and nebulizer treatments. Patient was admitted to the hospital for further workup. Hospital Course: Overall during the hospital stay patient remained stable Patient was initially admitted to the hospital for COPD exacerbation. Was started on duo nebs, steroids, oxygen while here in the hospital. Patient had marked improvement in her symptoms and thus was discharged home on long-acting beta agonist along with tapering dose of steroids. Patient was asked to follow up with pulmonology in about 1-2 weeks post discharge. Patient does not use any maintenance therapy at home and thus was advised to continue using her long- acting beta agonist Symbicort that she was prescribed here from the hospital. Patient demonstrated understanding and thus was discharged home under stable condition. Patient also had an echocardiogram done here in the hospital to rule out the possibility of CHF exacerbation. Echocardiogram was within normal limits thus ruling out CHF. Vital Signs/Physical Exam: Temp Pulse Resp BP Pulse Ox 97.8 F 63 16 151/53 H 92 11/19/17 12:00 11/19/17 12:00 11/19/17 12:00 11/19/17 12:00 11/19/17 12:00 General: Alert, In no apparent distress HEENT: Atraumatic, PERRLA, EOMI Neck: Supple, JVD not distended Respiratory: Clear to auscultation bilaterally, Normal air movement Cardiovascular: Regular rate/rhythm, Normal S1 S2 Gastrointestinal: Normal bowel sounds, No tenderness Musculoskeletal: No tenderness Integumentary: No rashes Neurological: Normal speech, Normal tone, Normal affect Lymphatics: No axilla or inguinal lymphadenopathy Laboratory Data at Discharge: WBC 4.8 K/uL (4.3-10.9) 11/18/17 04:30 Hgb 11.6 g/dL (12.0-15.0) L 11/18/17 04:30 Hct 33.6 % (36.0-45.0) L 11/18/17 04:30 Plt Count 131 K/uL (152-406) L 11/18/17 04:30 PT 12.6 SECONDS (9.5-12.5) H 11/17/17 18:00 INR 1.07 11/17/17 18:00 Sodium 140 mmol/L (136-145) 11/19/17 04:48 Potassium 3.6 mmol/L (3.5-5.1) 11/19/17 04:48 BUN 24 mg/dL (7-18) H 11/19/17 04:48 Creatinine 1.00 mg/dL (0.55-1.3) 11/19/17 04:48 Glucose 209 mg/dL (74-106) H 11/19/17 04:48 Phosphorus 3.2 mg/dL (2.5-4.9) 11/18/17 04:30 Magnesium 2.0 mg/dL (1.8-2.4) 11/18/17 04:30 Total Bilirubin 0.4 mg/dL (0.2-1.0) 11/18/17 04:30 AST 32 U/L (15-37) 11/18/17 04:30 ALT 42 U/L (12-78) 11/18/17 04:30 Alkaline Phosphatase 86 U/L (45-117) 11/18/17 04:30 Home Medications: Albuterol Sulfate [Proair Hfa] 8.5 gm IH Q6HP PRN 11/17/17 Clonidine HCl [Catapres] 0.1 mg PO TID 11/17/17 Gabapentin 300 mg PO BID 11/17/17 Leflunomide 20 mg PO DAILY 11/17/17 Metoprolol Tartrate 25 mg PO BID 11/17/17 Oxybutynin Chloride 5 mg PO BID 11/17/17 Sulfasalazine [Azulfidine] 1,000 mg PO BID 11/17/17 hydroCHLOROthiazide [Hydrochlorothiazide] 25 mg PO DAILY 11/17/17 Albuterol Neb [Proventil 0.083% Neb Soln] 2.5 mg IH Q6H #1 amp 11/19/17 Budesonide/Formoterol Fumarate [Symbicort 160-4.5 Mcg Inhaler] 2 puff IH BID #1 hfa.aer.ad 11/19/17 Ipratropium Neb [Atrovent*] 0.2 mg IH Q6H #1 amp 11/19/17 New Medications: Albuterol Neb [Proventil 0.083% Neb Soln] 2.5 mg IH Q6H #1 amp Budesonide/Formoterol Fumarate [Symbicort 160-4.5 Mcg Inhaler] 2 puff IH BID #1 hfa.aer.ad Ipratropium Neb [Atrovent*] 0.2 mg IH Q6H #1 amp Diet: Regular Activity: Ad angel Followup: Amish Perkins MD [ACTIVE - CAN ADMIT] - 1-2 Weeks (Call office to schedule an appointment)
== END 2017-11-19 12:18 | disposition home or self-care (01) | DRG 192 ==
LOC: ER 17:18 → ERHOLD 20:59 → OBSVTOIN 20:59 → 2ND 22:43
PROVIDERS: ADMIT Hospitalist; ATTEND Family Medicine
DX: J44.1 Chronic obstructive pulmonary disease with (acute) exacerbation (principal); I10 Essential (primary) hypertension; M06.9 Rheumatoid arthritis, unspecified; Z87.891 Personal history of nicotine dependence
CPT/HCPCS: 36415; 71045; 80048; 80053; 80076; 81003; 81015; 83605; 83735; 83880; 84100; 84145; 84484; 85025; 85610; 87040; 87804; 90670; 93005; 93306; 94640; 96360; 96361; 99285; G0008; G0009; J0456; J1650; J1940; J2930; Q2035

== ENCOUNTER 2018-03-21 16:31 | Observation (INO) | payer MEDICAID, OTHER ==
[2018-03-21 17:11] LABS: Absolute Lymphocytes (CBC) 2.9 K/uL (0.7-4.9); Absolute Monocytes 0.4 K/uL (0.1-1.3); Absolute Neutrophil 3.9 K/uL (1.8-8.0); Basophils % 1.2 % (0-1.3); Eosinophils % 1.4 % (0-4.4); Hematocrit 36.4 % (36.0-45.0); MPV 8.5 fL (7.6-11.3); Monocytes % 5.9 % (3.3-12.3); RBC Red Blood Cell Count 4.24 M/uL (3.86-4.86)
[2018-03-21 17:13] LABS: Protime INR 0.97
[2018-03-21 17:33] LABS: ALT/SGPT 29 U/L (12-78); AST/SGOT 16 U/L (15-37); Albumin 3.4 g/dL (3.4-5.0); Alkaline Phosphatase 87 U/L (45-117); BUN Blood Urea Nitrogen 14 mg/dL (7-18); Bicarbonate 30 mmol/L (21-32); Bilirubin Direct < 0.1 mg/dL (0-0.2); Bilirubin Total 0.3 mg/dL (0.2-1.0); Glucose Level 103 mg/dL (74-106); NT PRO-BNP 503 pg/mL (<125); Potassium 3.4 mmol/L (3.5-5.1); Protein, Total 6.9 g/dL (6.4-8.2); Sodium Level 141 mmol/L (136-145); Troponin (Emerg Dept Use Only) < 0.02 ng/mL (0.0-0.045)
--- NOTE | 2018-03-21 17:36 | RAD REPORT ---
EXAM DESCRIPTION: CT - Head Brain Wo Cont - 03/21/2018 5:22 pm CLINICAL HISTORY: Dizziness, hypertension COMPARISON: August 2012 TECHNIQUE: Axial 5 mm thick images of the head were obtained without IV contrast. All CT scans are performed using dose optimization technique as appropriate and may include automated exposure control or mA/KV adjustment according to patient size. FINDINGS: No intracranial hemorrhage, mass, edema or shift of mid-line structures. No cortical edema or sulcal effacement. The lateral ventricles and third ventricle have enlarged since 2013. Fourth ve ntricle is questionably larger than seen in 2013. Ventricular enlargement has occurred without a contreras rly matching parenchymal volume loss. Mastoid air cells and visualized portions of the paranasal sinuses are clear. No acute bony findings. IMPRESSION: No hemorrhage, mass or acute intracranial finding identifiable. Ventricles have enlarged since 2012 without a corresponding matching brain parenchymal volume loss. C orrelation is needed with any clinical findings that may suggest an obstructive or nonobstructive hyd rocephalus. There is no emergent mass effect or cerebral edema.
--- NOTE | 2018-03-21 17:46 | RAD REPORT ---
EXAM DESCRIPTION: RAD - Chest Single View - 03/21/2018 5:25 pm CLINICAL HISTORY: Chest pain, hypertension COMPARISON: November 2017 TECHNIQUE: AP portable chest image was obtained 1718 hours . FINDINGS: Portable technique and body habitus accentuate chest findings. Interstitial markings are p rominent. Pattern is not substantially different. Cardiac silhouette is enlarged compared to prior im aging. Vasculature is increased. No pneumothorax or large pleural effusion. No acute bony abnormality seen. No acute aortic findings suspected. IMPRESSION: Heart and vasculature are prominent. Interstitial markings are prominent as a baseline. Chest findings suggest a developing failure or volume overload.
--- NOTE | 2018-03-21 17:53 | ER ---
Nurse's Notes [facility] Name: Vickie Meza Age: 62 yrs Sex: Female : 1955 Arrival Date: 03/21/2018 Time: 16:36 Bed 25 Private MD: Diagnosis: Chest pain, unspecified;Hypertensive heart disease Presentation: 03/21 16:37 Presenting complaint: EMS states: patient is complaining of dizziness, high blood mg2 pressure and chest pain since 1500H today. metoprolol 5 mg po was given at 1607H. her blood pressure was 213/79 on scene and decreased to 170/77 after the medicine. Transition of care: patient was not received from another setting of care. Onset of symptoms was March 21, 2018 at 15:00. Risk Assessment: Do you want to hurt yourself or someone else? Patient reports no desire to harm self or others. Initial Sepsis Screen: Does the patient meet any 2 criteria? No. Patient's initial sepsis screen is negative. Does the patient have a suspected source of infection? No. Patient's initial sepsis screen is negative. Care prior to arrival: Medication(s) given: metoprolol 5 mg po. 16:37 Method Of Arrival: EMS mg2 16:37 Acuity: JULIÁN 3 mg2 Triage Assessment: 19:15 General: Appears in no apparent distress. comfortable, Behavior is calm, cooperative. mg2 Historical: - Allergies: 16:42 Demerol; mg2 16:42 Morphine; mg2 16:42 PENICILLINS; mg2 16:42 Valium; mg2 - Home Meds: 16:42 clonidine HCl 0.1 mg Oral tab 1 tab 3 times per day [Active]; metoprolol tartrate 25 mg mg2 Oral tab 1 tab 2 times per day [Active]; gabapentin 300 mg Oral cap 1 cap twice a day [Active]; hydrochlorothiazide 25 mg Oral tab 1 tab once daily [Active]; leflunomide 20 mg Oral tab 1 tab once daily [Active]; oxybutynin chloride 5 mg Oral tab 1 tab 2 times per day [Active]; ProAir HFA 90 mcg/actuation inhalation HFAA 1 puff q 6 hr s prnjh [Active]; sulfasalazine 500 mg Oral tab 2 tab twice a day [Active]; - PMHx: 16:42 Arthritis; COPD; Hypertension; mg2 - PSHx: 16:42 Cholecystectomy; Tubal ligation; elbow surgery; mg2 - Immunization history:: Pneumococcal vaccine is up to date, . - Social history:: Smoking status: Patient/guardian denies using tobacco, Patient/guardian denies using alcohol, street drugs, IV drugs. - Ebola Screening: : No symptoms or risks identified at this time. Screenin:43 Abuse screen: Denies threats or abuse. Denies injuries from another. Nutritional mg2 screening: No deficits noted. Tuberculosis screening: No symptoms or risk factors identified. Fall Risk IV access (20 points). Assessment: 18:20 Reassessment: see triage assessment. mg2 19:14 Reassessment: patient complains of burning sensation on her both eyes. Pain: Denies mg2 pain. Vital Signs: 16:40 BP 188 / 48; Pulse 60; Resp 18; Temp 97.7(O); Pulse Ox 95% on R/A; Weight 84.82 kg; mg2 Height 5 ft. 4 in. (162.56 cm); Pain 0/10; 17:50 BP 209 / 60; mg2 17:50 BP 178 / 56; mg2 19:14 BP 192 / 87; Pulse 65; Resp 18; Pulse Ox 100% on R/A; Pain 0/10; mg2 19:49 BP 166 / 65; Pulse 68; Resp 18; Pulse Ox 98% on 2 lpm NC; Pain 0/10; mg2 16:40 Body Mass Index 32.10 (84.82 kg, 162.56 cm) mg2 ED Course: 16:36 Patient arrived in ED. mg2 16:37 Elmo Mathur, MANDEEP is Primary Nurse. mg2 16:40 Triage completed. mg2 16:43 Arm band placed on. mg2 16:43 No provider procedures requiring assistance completed. Maintain EMS IV. Dressing mg2 intact. Good blood return noted. Site clean \T\ dry. Gauge \T\ site: 20 \T\ RAC. 16:45 Jesus Soliz PA is PHCP. cp 16:45 Felix Hinton MD is Attending Physician. cp 16:57 EKG done, by oven technician. reviewed by Jesus KEITH. sm3 17:[address] vr 17:19 CT completed. Patient tolerated procedure well. Patient moved back from CT. vr 17:22 CT Head Brain wo Cont In Process Unspecified. EDMS 17:29 XRAY Chest (1 view) In Process Unspecified. EDMS 17:52 Lyubov Zuniga MD is Hospitalizing Provider. cp 18:21 Patient has correct armband on for positive identification. Pulse ox on. NIBP on. Door mg2 closed. Warm blanket given. 20:12 Patient admitted, IV remains in place. mg2 Administered Medications: 17:51 Drug: Lisinopril 20 mg Route: PO; mg2 18:50 Follow up: Response: No adverse reaction; Blood pressure is lowered mg2 17:51 Drug: hydrALAZINE 10 mg Route: IV; Rate: calculated rate; Site: right antecubital; mg2 18:50 Follow up: Response: No adverse reaction; Blood pressure is lowered mg2 17:51 Drug: Aspirin Chewable Tablet 324 mg Route: PO; mg2 19:34 Follow up: Response: No adverse reaction mg2 18:18 Drug: Potassium Effervescent Tablet 25 mEq Route: PO; mg2 19:34 Follow up: Response: No adverse reaction mg2 19:34 Drug: hydrALAZINE 10 mg Route: IV; Rate: bolus; Site: right antecubital; mg2 Outcome: 17:53 Decision to Hospitalize by Provider. cp 20:12 Admitted to Med/surg accompanied by tech, family with patient, via wheelchair, room mg2 217, with oxygen, with chart, Report called to MANDEEP Rousseau 20:12 Condition: stable 20:12 Instructed on the need for admit, Demonstrated understanding of instructions. 20:27 Patient left the ED. mg2 Signatures: Dispatcher [employer] EDPR Yaneth Norton Corey, PA PA cp Gardose, Michele, RN RN mg2 Pao Root sm3 Corrections: (The following items were deleted from the chart) 16:44 16:40 Pulse 60bpm; Resp 18bpm; Pulse Ox 95% RA; Temp 97.7F Oral; Pain 0/10; mg2 mg2 16:45 16:40 BP 188 / 48; Pulse 60bpm; Resp 18bpm; Pulse Ox 95% RA; Temp 97.7F Oral; Pain mg2 0/10; mg2 19:16 19:14 Pulse 65bpm; Resp 18bpm; Pulse Ox 100% RA; Pain 0/10; mg2 mg2 19:52 19:49 BP 155 / 111; Pulse 68bpm; Resp 18bpm; Pulse Ox 98% 2 lpm Nasal Cannula; Pain mg2 0/10; mg2
--- NOTE | 2018-03-21 17:53 | EDPHYS ---
Physician Documentation [facility] Name: Vickie Meza Age: 62 yrs Sex: Female : 1955 Arrival Date: 03/21/2018 Time: 16:36 Bed 25 Private MD: ED Physician Felix Hinton HPI: 03/21 17:00 This 62 yrs old Female presents to ER via EMS with complaints of chest pain. cp 17:00 The patient or guardian reports chest pain that is located primarily in the anterior cp chest wall. Onset: today, at 15:00. The pain does not radiate. Associated signs and symptoms: Pertinent positives: dizziness, headache, Pertinent negatives: abdominal pain, diaphoresis, lower extremity pain, lower extremity swelling. Duration: The patient or guardian reports a single episode. Historical: - Allergies: 16:42 Demerol; mg2 16:42 Morphine; mg2 16:42 PENICILLINS; mg2 16:42 Valium; mg2 - Home Meds: 16:42 clonidine HCl 0.1 mg Oral tab 1 tab 3 times per day [Active]; metoprolol tartrate 25 mg mg2 Oral tab 1 tab 2 times per day [Active]; gabapentin 300 mg Oral cap 1 cap twice a day [Active]; hydrochlorothiazide 25 mg Oral tab 1 tab once daily [Active]; leflunomide 20 mg Oral tab 1 tab once daily [Active]; oxybutynin chloride 5 mg Oral tab 1 tab 2 times per day [Active]; ProAir HFA 90 mcg/actuation inhalation HFAA 1 puff q 6 hr s prnjh [Active]; sulfasalazine 500 mg Oral tab 2 tab twice a day [Active]; - PMHx: 16:42 Arthritis; COPD; Hypertension; mg2 - PSHx: 16:42 Cholecystectomy; Tubal ligation; elbow surgery; mg2 - Immunization history:: Pneumococcal vaccine is up to date, . - Social history:: Smoking status: Patient/guardian denies using tobacco, Patient/guardian denies using alcohol, street drugs, IV drugs. - Ebola Screening: : No symptoms or risks identified at this time. ROS: 17:05 Constitutional: Negative for body aches, chills, fever, poor PO intake. cp 17:05 Eyes: Negative for injury, pain, redness, and discharge. cp 17:05 ENT: Negative for drainage from ear(s), ear pain, sore throat, difficulty swallowing, difficulty handling secretions. 17:05 Cardiovascular: Positive for chest pain, Negative for edema, palpitations. 17:05 Respiratory: Negative for cough, shortness of breath, wheezing. 17:05 Abdomen/GI: Negative for abdominal pain, nausea, vomiting, and diarrhea, black/tarry stool, rectal bleeding. 17:05 Skin: Negative for cellulitis, rash. 17:05 Neuro: Positive for dizziness, headache, Negative for altered mental status, syncope, weakness. 17:05 All other systems are negative. Exam: 16:55 ECG was reviewed by the Attending Physician. cp 17:10 Constitutional: The patient appears in no acute distress, alert, awake, cp non-diaphoretic, non-toxic, well developed, well nourished. 17:10 Head/Face: Normocephalic, atraumatic. cp 17:10 Eyes: Pupils equal round and reactive to light, extra-ocular motions intact. Lids and lashes normal. Conjunctiva and sclera are non-icteric and not injected. Cornea within normal limits. Periorbital areas with no swelling, redness, or edema. ENT: Nares patent. No nasal discharge, no septal abnormalities noted. Tympanic membranes are normal and external auditory canals are clear. Oropharynx with no redness, swelling, or masses, exudates, or evidence of obstruction, uvula midline. Mucous membranes moist. Chest/axilla: Normal chest wall appearance and motion. Nontender with no deformity. No lesions are appreciated. 17:10 Cardiovascular: Rate: normal, Rhythm: regular, Edema: is not appreciated, JVD: is not appreciated. 17:10 Respiratory: the patient does not display signs of respiratory distress, Respirations: normal, no use of accessory muscles, no retractions, no splinting, no tachypnea, labored breathing, is not present, Breath sounds: are clear throughout, no decreased breath sounds, no stridor, no wheezing. 17:10 Abdomen/GI: Inspection: abdomen appears normal, Bowel sounds: active, all quadrants, Palpation: abdomen is soft and non-tender, in all quadrants, rebound tenderness, is not appreciated, voluntary guarding, is not appreciated, involuntary guarding, is not appreciated. 17:10 Back: pain, is absent, ROM is normal. 17:10 Skin: cellulitis, is not appreciated, no rash present. 17:10 Neuro: Orientation: to person, place \T\ time. Mentation: is normal, Cerebellar function: is grossly normal, Motor: moves all fours, strength is normal, Sensation: is normal. Vital Signs: 16:40 BP 188 / 48; Pulse 60; Resp 18; Temp 97.7(O); Pulse Ox 95% on R/A; Weight 84.82 kg; mg2 Height 5 ft. 4 in. (162.56 cm); Pain 0/10; 17:50 BP 209 / 60; mg2 17:50 BP 178 / 56; mg2 19:14 BP 192 / 87; Pulse 65; Resp 18; Pulse Ox 100% on R/A; Pain 0/10; mg2 19:49 BP 166 / 65; Pulse 68; Resp 18; Pulse Ox 98% on 2 lpm NC; Pain 0/10; mg2 16:40 Body Mass Index 32.10 (84.82 kg, 162.56 cm) mg2 MDM: 16:58 Patient medically screened. cp 17:55 The patient was given aspirin in the Emergency Department. cp 17:55 Data reviewed: vital signs, nurses notes, lab test result(s), EKG, radiologic studies, cp CT scan, plain films. Test interpretation: by ED physician or midlevel provider: ECG. Response to treatment: the patient's symptoms have markedly improved after treatment, and as a result, I will admit patient. Physician consultation: Lyubov Zuniga MD was called at 17:50, was contacted at 17:50, regarding admission, to the telemetry unit. patient's condition. 03/21 16:48 Order name: Basic Metabolic Panel; Complete Time: 17:35 mg2 03/21 17:35 Interpretation: Normal except: K 3.4; GFR 66. cp 03/21 16:48 Order name: CBC with Diff; Complete Time: 17:35 mg2 03/21 16:48 Order name: LFT's; Complete Time: 17:35 mg2 03/21 17:48 Interpretation: Normal except: A/G 1.0. cp 03/21 16:48 Order name: Magnesium; Complete Time: 17:35 mg2 03/21 16:48 Order name: NT PRO-BNP; Complete Time: 17:35 mg2 03/21 16:48 Order name: PT-INR; Complete Time: 17:35 mg2 03/21 16:48 Order name: Troponin (emerg Dept Use Only); Complete Time: 17:35 mg2 03/21 16:48 Order name: XRAY Chest (1 view); Complete Time: 17:47 mg2 03/21 17:10 Order name: CT Head Brain wo Cont; Complete Time: 17:42 cp 02 16:48 Order name: EKG; Complete Time: 16:49 mg2 03/21 16:48 Order name: Cardiac monitoring; Complete Time: 17:04 mg2 03/21 16:48 Order name: EKG - Nurse/Tech; Complete Time: 17:04 mg2 03/21 16:48 Order name: IV Saline Lock; Complete Time: 17:04 mg2 03/21 16:48 Order name: Labs collected and sent; Complete Time: 17:04 mg2 03/21 16:48 Order name: O2 Per Protocol; Complete Time: 17:04 mg2 03/21 16:48 Order name: O2 Sat Monitoring; Complete Time: 17:04 mg2 EC:55 Rate is 57 beats/min. Rhythm is regular. SD interval is normal. QRS interval is normal. cp QT interval is normal. Interpreted by me. Reviewed by me. Administered Medications: 17:51 Drug: Lisinopril 20 mg Route: PO; mg2 18:50 Follow up: Response: No adverse reaction; Blood pressure is lowered mg2 17:51 Drug: hydrALAZINE 10 mg Route: IV; Rate: calculated rate; Site: right antecubital; mg2 18:50 Follow up: Response: No adverse reaction; Blood pressure is lowered mg2 17:51 Drug: Aspirin Chewable Tablet 324 mg Route: PO; mg2 19:34 Follow up: Response: No adverse reaction mg2 18:18 Drug: Potassium Effervescent Tablet 25 mEq Route: PO; mg2 19:34 Follow up: Response: No adverse reaction mg2 19:34 Drug: hydrALAZINE 10 mg Route: IV; Rate: bolus; Site: right antecubital; mg2 Disposition: 03/21/18 17:53 Hospitalization ordered by Lyubov Zuniga for Observation. Preliminary diagnosis are Chest pain, unspecified, Hypertensive heart disease. - Bed requested for Telemetry/MedSurg (observation). - Status is Observation. mg2 - Condition is Stable. - Problem is new. - Symptoms have improved. UTI on Admission? No Addendum: 03/25/2018 12:15 Co-signature as Attending Physician, Felix Hinton MD. g s Signatures: Dispatcher [employer] EDMS Jesus Soliz PA PA cp Fitzgerald, Diane, RN RN df Felix Hinton MD MD Elmo Mathur, MANDEEP RN mg2 Corrections: (The following items were deleted from the chart) 03/21 18:36 17:53 Hospitalization Ordered by Lyubov Zuniga MD for Observation. Preliminary diagnosis df is Chest pain, unspecified; Hypertensive heart disease. Bed requested for Telemetry/MedSurg (observation). Status is Observation. Condition is Stable. Problem is new. Symptoms have improved. UTI on Admission? No. cp 20:27 18:36 03/21/2018 17:53 Hospitalization Ordered by Lyubov Zuniga MD for Observation. mg2 Preliminary diagnosis is Chest pain, unspecified; Hypertensive heart disease. Bed requested for Telemetry/MedSurg (observation). Status is Observation. Condition is Stable. Problem is new. Symptoms have improved. UTI on Admission? No. df
[2018-03-21] MEDS ORDERED: HYDRALAZINE HCL 20 MG/ML VIAL ONE (17:57)
[2018-03-21] MEDS ORDERED: LISINOPRIL 20 MG TAB ONE (17:57)
[2018-03-21] MEDS ORDERED: ASPIRIN 81 MG CHEWABLE TABLET ONE (17:57)
[2018-03-21] MEDS ORDERED: POTASSIUM 25 MEQ EFFERV TAB ONE (18:19)
[2018-03-21 20:53] VITALS: BMI 30.9
--- NOTE | 2018-03-21 21:44 | EKG ---
Test Date: 2018-03-21 Test Time: 16:49:24 Psych Nurse: NEEL MEASUREMENT RESULTS: Intervals: Rate: 57 [place]: 172 QRSD: 90 QT: 446 QTc: 434 [place]: P: 62 [place]: 172 QRS: 82 T: 62 INTERPRETIVE STATEMENTS: Sinus bradycardia Cannot rule out Anterior infarct, age undetermined Abnormal ECG Compared to ECG 11/17/2017 18:01:49 Sinus rhythm no longer present Myocardial infarct finding still present Electronically Signed On 03-21-18 21:43:47 ERECTING CRANE OPERATOR by Patricio Fisher
[2018-03-21] MEDS ORDERED: ALBUTEROL INHALER 60 PUFF/8 GM IH PRN (22:50)
[2018-03-21] MEDS ORDERED: cloNIDine HCl 0.1 MG TAB PO ONE (22:51)
[2018-03-21] MEDS ORDERED: VANCOMYCIN 1.25 GM in NA CHLORIDE 0.9% 500 ML IVPB ONE (22:52)
--- NOTE | 2018-03-22 04:16 | P.HP ---
Certification for Inpatient Patient admitted to: Observation With expected LOS: <2 Midnights Patient will require the following post-hospital care: None Practitioner: I am a practitioner with admitting privileges, knowledge of patient current condition, hospital course, and medical plan of care. Services: Services provided to patient in accordance with Admission requirements found in Title 42 Section 412.3 of the Code of Federal Regulations Patient History Date of Service: 03/21/18 Reason for admission: Uncontrolled hypertension History of Present Illness: Patient is a 62-year-old female who was admitted to the hospital because of dizziness and hypertension. Patient was also having chest discomfort. Patient' s blood pressure was 210s over 80s. Patient was given Lopressor 5 mg IV in the emergency room as well as hydralazine IV. Patient blood pressure has come down. However, patient's new concern is a rash that she has developed. It is a rash over the eyes and underneath the eyes. Will go ahead and hold off on hydralazine at this time in monitored id chief somewhat and it was not present prior to getting medications in the emergency room. Will reassess in a.m.. At this time will get strict blood pressure control and rule her out for acute coronary syndrome. Further workup with echocardiogram. Allergies Penicillins Allergy (Mild, Verified 03/21/18 22:55) Anaphylaxis Home Medications: Albuterol Sulfate [Proair Hfa] 2 puff Q6HP PRN 03/21/18 Clonidine HCl [Catapres] 1 tab PO TID 03/21/18 Gabapentin 1 cap PO BID 03/21/18 Leflunomide [Arava] 1 tab PO DAILY 03/21/18 Metoprolol Tartrate [Lopressor*] 1 tab PO BID 03/21/18 Theophylline Anhydrous [Jorge-24] 1 cap PO DAILY 03/21/18 Tiotropium Br/Olodaterol HCl [Stiolto Respimat Inhal [place]] 1 puff DAILY hydroCHLOROthiazide [Hydrochlorothiazide*] 25 mg PO DAILY 03/21/18 predniSONE [Deltasone*] 1 tab PO BID 03/21/18 sulfaSALAzine [Sulfasalazine] 1,000 mg PO BID 03/21/18 - Past Medical/Surgical History Has patient received pneumonia vaccine in the past: Yes Diabetic: No -: COPD -: HTN -: Rheumatoid Arthritis -: heart attack -: cholecystectomy -: Elbow surg - left -: Tubal ligation - Family History Father Family History: Reviewed- Non-Contributory - Social History Smoking Status: Former smoker Alcohol use: Yes CD- Drugs: No Caffeine use: Yes Place of Residence: Home Review of Systems 10-point ROS is otherwise unremarkable Physical Examination - Vital Signs Temperature: 98.2 F Blood Pressure: 174/76 Pulse: 75 Respirations: 18 Pulse Ox (%): 97 - Physical Exam General: Alert, In no apparent distress, Oriented x3 HEENT: Atraumatic, PERRLA, Mucous membr. moist/pink, Other (Erythema around the eyes), EOMI, Sclerae nonicteric Neck: Supple, 2+ carotid pulse no bruit, No LAD, Without JVD or thyroid abnormality Respiratory: Clear to auscultation bilaterally, Normal air movement Cardiovascular: Regular rate/rhythm, Normal S1 S2, No murmurs Gastrointestinal: Normal bowel sounds, Soft and benign, Non-distended, No tenderness Musculoskeletal: No clubbing, No swelling, No tenderness Integumentary: No rashes Neurological: Normal gait, Normal speech, Normal strength at 5/5 x4 extr, Normal tone, Sensation intact, Cranial nerves 3-12 intact, Normal affect Lymphatics: No axilla or inguinal lymphadenopathy - Studies Laboratory Data (last 24 hrs) 03/21/18 16:50: PT 11.5, INR 0.97 03/21/18 16:50: WBC 7.5, Hgb 12.3, Hct 36.4, Plt Count 214 03/21/18 16:50: Sodium 141, Potassium 3.4 L, BUN 14, Creatinine 0.87, Glucose 103, Magnesium 2.0, Total Bilirubin 0.3, AST 16, ALT 29, Alkaline Phosphatase 87 Assessment & Plan - Problems (Diagnosis) (1) Chest pain, rule out acute myocardial infarction Current Visit: Yes Status: Acute (2) Malignant hypertension Current Visit: Yes Status: Acute (3) Drug-induced skin rash Current Visit: Yes Status: Acute (4) Diastolic dysfunction with acute on chronic heart failure Onset Date: 11/18/17 Current Visit: No Status: Acute - Plan 1. Serial troponins and EKG 2. Appreciate Cardiology consultation 3. Echocardiogram and carotid Doppler 4. Anti-platelet therapy, anti coagulation, beta-linette, statin, and O2 as needed 5. IV morphine for pain 6. Hold hydralazine 7. Monitor labs closely 8. GI and DVT prophylaxis Discharge Plan: Home Plan to discharge in: 24 Hours - Advance Directives Does patient have a Living Will: No Does patient have a Durable POA for Healthcare: No - Code Status/Comfort Care Code Status Assessed: Yes Code Status: Full Code Critical Care: No Time Spent Managing PTS Care (In Minutes): 50
[2018-03-22] MEDS: cloNIDine HCl 0.1 MG TAB PO SCH ×2 (05:05→09:00)
[2018-03-22 06:07] LABS: Absolute Lymphocytes (CBC) 2.1 K/uL (0.7-4.9); Absolute Monocytes 0.4 K/uL (0.1-1.3); Absolute Neutrophil 3.2 K/uL (1.8-8.0); Basophils % 1.1 % (0-1.3); Eosinophils % 1.6 % (0-4.4); Hematocrit 34.9 % (36.0-45.0); Lymphocytes % 36.1 % (15.3-44.8); MPV 8.4 fL (7.6-11.3); Monocytes % 6.4 % (3.3-12.3); RBC Red Blood Cell Count 4.04 M/uL (3.86-4.86)
[2018-03-22 06:09] LABS: Albumin 3.2 g/dL (3.4-5.0); Bilirubin Total 0.3 mg/dL (0.2-1.0); Phosphorus 4.1 mg/dL (2.5-4.9); Potassium 3.5 mmol/L (3.5-5.1); Protein, Total 6.4 g/dL (6.4-8.2)
[2018-03-22 06:52] LABS: Urine Appearance CLEAR; Urine Bilirubin NEGATIVE (NEG); Urine Blood NEGATIVE (NEG); Urine Color YELLOW; Urine Glucose NEGATIVE (NEG); Urine Protein TRACE (NEG); Urine Urobilinogen 0.2 mg/dL (0.2-1.0)
[2018-03-22 06:55] LABS: Urine Microscopic Reflex ORDER UMIC
[2018-03-22 07:12] LABS: Urine Bacteria <20 /HPF (<20); Urine Culture Reflex Order NOT NEEDED; Urine RBC <5 /HPF (NONE SEEN)
[2018-03-22] MEDS ORDERED: METOPROLOL TAR 25 MG TAB PO SCH (09:00)
[2018-03-22] MEDS: LEFLUNOMIDE PO SCH (09:00)
[2018-03-22] MEDS ORDERED: OLODATEROL HCL IH SCH (09:00)
[2018-03-22] MEDS ORDERED: TIOTROPIUM BR IH SCH (09:00)
[2018-03-22] MEDS ORDERED: THEOPHYLLINE ANHYDROUS PO SCH (09:00)
[2018-03-22] MEDS ORDERED: SULFASALAZINE 1000 MG PO SCH (09:00)
[2018-03-22] MEDS ORDERED: POTASSIUM CL SA 10 MEQ TAB PO ONE (09:00)
[2018-03-22] MEDS: hydroCHLOROthiazide 12.5 MG CAP PO SCH ×2 (09:00→09:36)
[2018-03-22] MEDS: GABAPENTIN 300 MG CAP PO SCH ×2 (09:09→21:19)
[2018-03-22] MEDS: ENOXAPARIN 40 MG/0.4 ML SQ SCH (09:11)
[2018-03-22] MEDS: predniSONE 10 MG TAB PO SCH ×2 (09:11→21:20)
[2018-03-22] MEDS: ASPIRIN EC 81 MG TAB PO SCH (10:29)
--- NOTE | 2018-03-22 10:31 | RAD REPORT ---
EXAM DESCRIPTION: US - CP - 03/22/2018 9:03 am CLINICAL HISTORY: Lightheadedness/near syncope Headache, syncope COMPARISON: No comparisons TECHNIQUE: Real-time sonographic evaluation of both carotid systems was performed. Doppler interroga tion was performed with waveform tracing bilaterally. FINDINGS: Normal high resistance waveforms are noted in both external carotid arteries. The common c arotid arteries and internal carotid arteries show normal low resistance waveforms. Bilateral intimal thickening is seen with soft plaquing in both carotid bulbs, mild. Peak systolic an d end diastolic velocity values and the ICA/CCA ratios are in the non-hemodynamically significant ran ge. Antegrade flow seen in both vertebral arteries. IMPRESSION: Mild soft plaquing is seen in both carotid bulbs. No evidence of a hemodynamically significant stenosis.
[2018-03-22] MEDS: AMLODIPINE 5 MG TAB PO SCH (13:03)
--- NOTE | 2018-03-22 15:20 | P.PN ---
Subjective Date of Service: 03/22/18 Chief Complaint: Uncontrolled hypertension Subjective: Improving Patient seen and examined at bedside. Daughters at bedside. Chart reviewed and case discussed with nursing staff. Doing well this morning. Rash around the eyes is improved Blood pressure still remains high though patient refused hydrochlorothiazide-as she thought this is what caused the rash. Review of Systems 10-point ROS is otherwise unremarkable Physical Examination - Vital Signs Temperature: 97.2 F Blood Pressure: 150/80 Pulse: 54 Respirations: 18 Pulse Ox (%): 97 - Physical Exam General: Alert, In no apparent distress, Oriented x3 HEENT: Atraumatic, PERRLA, EOMI Neck: Supple, JVD not distended Respiratory: Clear to auscultation bilaterally, Normal air movement Cardiovascular: Regular rate/rhythm, Normal S1 S2 Gastrointestinal: Normal bowel sounds, No tenderness Musculoskeletal: No tenderness Integumentary: Rash(es) (Much improved, barely noticeable slight erythema around right eye) Neurological: Normal speech, Normal tone, Normal affect Lymphatics: No axilla or inguinal lymphadenopathy - Studies Laboratory Data (last 24 hrs) 03/21/18 16:50: PT 11.5, INR 0.97 03/21/18 16:50: WBC 7.5, Hgb 12.3, Hct 36.4, Plt Count 214 03/21/18 16:50: Sodium 141, Potassium 3.4 L, BUN 14, Creatinine 0.87, Glucose 103, Magnesium 2.0, Total Bilirubin 0.3, AST 16, ALT 29, Alkaline Phosphatase 87 Assessment And Plan - Current Problems (Diagnosis) (1) Chest pain, rule out acute myocardial infarction Onset Date: 03/22/18 Current Visit: Yes Status: Acute (2) Diastolic dysfunction with acute on chronic heart failure Onset Date: 11/18/17 Current Visit: Yes Status: Acute (3) Drug-induced skin rash Onset Date: 03/22/18 Current Visit: Yes Status: Acute (4) Malignant hypertension Onset Date: 03/22/18 Current Visit: Yes Status: Acute (5) COPD with acute exacerbation Onset Date: 11/18/17 Current Visit: No Status: Acute - Plan This is a 62-year-old female with: Chest pain, rule out acute myocardial infarction (Acute 03/22/18) R07.9 Diastolic dysfunction with acute on chronic heart failure (Acute 11/18/17) I50.33 Drug-induced skin rash (Acute 03/22/18) L27.0 Malignant hypertension (Acute 03/22/18) I10 COPD with acute exacerbation (Acute 11/18/17) J44.1 1. Serial troponins and EKG 2. Cardiology consultation, pending. 3. Echocardiogram and carotid Doppler 4. Anti-platelet therapy, anti coagulation, beta-linette, statin, and O2 as needed 5. IV morphine for pain 6. Hold hydralazine. 7. Monitor labs closely 8. GI and DVT prophylaxis
--- NOTE | 2018-03-22 16:03 | CON ---
CARDIOLOGY CONSULT History Of Present Illness: A 62-year-old woman. The chief complaint is blood pressure is difficult to control. She is not having any pain or particular symptoms at least that she related to me. In the emergency room, the note says she was having chest pain, but the patient denies that to me. She has longstanding hypertension and seems to be doing poorly. She will have periods of time during the day when her blood pressure will be alright and her blood pressure tends to go up dramatically in ep isodes. When she has episode, she takes clonidine. She actually takes clonidine 3 times a day and i n addition, when her blood pressure goes up, she takes extra. She has severe obstructive lung diseas e and takes albuterol, prednisone, theophylline, sulfasalazine, and tiotropium for that. Medications: Other medications are hydrochlorothiazide, leflunomide, metoprolol 25 b.i.d., gabapenti n, clonidine and tiotropium. Social History: She does not use tobacco, she quit a year ago. Allergies: SHE IS ALLERGIC TO HYDRALAZINE AND PENICILLINS. Physical Examination: Vital Signs: 5 feet 4 inches, 180 pounds. General: Obese, alert, oriented. Lungs: Clear. She coughs a lot. Abdomen: Soft. Heart: Within normal limits. Extremities: No significant edema. Impression: The patient should be treated with long-acting medications. I think switching to metopr olol succinate and giving it in divided doses would be helpful and using a long-acting calcium blocke r such as amlodipine might be helpful. In general, I find clonidine use tends to cause episodic bloo d pressure fluctuations like Ms. Meza has because it is a such a short half-life drug. Also miss ing from her regimen is regular exercise. Thank you very much for your kind referral of Ms. Meza. I will follow her with you. NORM/AMELIA Voice ID: [id number] Report ID: [id number]
--- NOTE | 2018-03-22 16:55 | ECHO ---
HEIGHT: 5 ft 4 in WEIGHT: 180 lb 0 oz DATE OF STUDY: 03/22/[address]: Cedric Steward MD 2-DIMENSIONAL: YES M.MODE: YES DOPPLER: YES COLOR FLOW: YES TDS: NO PORTABLE: NO DEFINITY: NO BUBBLE STUDY: NO DIAGNOSIS: CHEST PAIN, DIZZINESS CARDIAC HISTORY: CATHERIZATION: NO SURGERY: NO PROSTHETIC VALVE: NO PACEMAKER: NO MEASUREMENTS (cm) DIASTOLIC (NORMALS) SYSTOLIC (NORMALS) IVSd 1.0 (0.6-1.2) LA Diam 3.6 (1.9-4.0) LVEF 69% LVIDd 5.7 (3.5-5.7) LVIDs 3.4 (2.0-3.5) %FS 39% LVPWd 0.9 (0.6-1.2) Ao Diam 2.9 (2.0-3.7) 2 DIMENSIONAL ASSESSMENT: RIGHT ATRIUM: NORMAL LEFT ATRIUM: NORMAL RIGHT VENTRICLE: NORMAL LEFT VENTRICLE: NORMAL TRICUSPID VALVE: NORMAL MITRAL VALVE: NORMAL PULMONIC VALVE: NORMAL AORTIC VALVE: NORMAL PERICARDIAL EFFUSION: NONE AORTIC ROOT: NORMAL LEFT VENTRICULAR WALL MOTION: NORMAL. DOPPLER/COLOR FLOW: MILD AORTIC REGURGITATION. MILD MITRAL REGURGITATION. COMMENTS: NORMAL 2D ECHOCARDIOGRAM WITH DOPPLER. MILD AORTIC REGURGITATION. MILD MITRAL REGURGITATION. TECHNOLOGIST: NIXON AVALOS
[2018-03-22] MEDS: SULFASALAZINE 500 MG E.C. TAB PO SCH (21:00)
[2018-03-23] MEDS ORDERED: METOPROLOL XL 50 MG TAB PO SCH (06:00)
[2018-03-23 06:36] LABS: Potassium 4.8 mmol/L (3.5-5.1)
[2018-03-23] MEDS: LEFLUNOMIDE PO SCH (09:00)
[2018-03-23] MEDS ORDERED: THEOPHYLLINE SR 100 MG TAB PO SCH (09:00)
[2018-03-23] MEDS: SULFASALAZINE 500 MG E.C. TAB PO SCH (09:00)
[2018-03-23 10:36] VITALS: BP 186/78; TEMP 98
[2018-03-23] MEDS: ASPIRIN EC 81 MG TAB PO SCH (10:37)
[2018-03-23] MEDS: GABAPENTIN 300 MG CAP PO SCH (10:38)
[2018-03-23] MEDS: hydroCHLOROthiazide 12.5 MG CAP PO SCH (10:38)
[2018-03-23] MEDS: predniSONE 10 MG TAB PO SCH (10:38)
[2018-03-23] MEDS: AMLODIPINE 5 MG TAB PO SCH (10:38)
[2018-03-23] MEDS: ENOXAPARIN 40 MG/0.4 ML SQ SCH (10:38)
[2018-03-23 12:21] VITALS: O2SAT 95
--- NOTE | 2018-03-27 16:00 | P.SSS ---
Patient History Date of Service: 03/23/18 Reason for admission: Uncontrolled hypertension History of Present Illness: Patient is a 62-year-old female who was admitted to the hospital because of dizziness and hypertension. Patient was also having chest discomfort. Patient' s blood pressure was 210s over 80s. Patient was given Lopressor 5 mg IV in the emergency room as well as hydralazine IV. Patient blood pressure has come down. However, patient's new concern is a rash that she has developed. It is a rash over the eyes and underneath the eyes. Will go ahead and hold off on hydralazine at this time in monitored id chief somewhat and it was not present prior to getting medications in the emergency room. Will reassess in a.m.. At this time will get strict blood pressure control and rule her out for acute coronary syndrome. Further workup with echocardiogram. Allergies hydralazine Allergy (Intermediate, Verified 03/22/18 09:40) Rash Penicillins Allergy (Mild, Verified 03/21/18 22:55) Anaphylaxis Home Medications: Albuterol Sulfate [Proair Hfa] 2 puff Q6HP PRN 03/21/18 Gabapentin 1 cap PO BID 03/21/18 Leflunomide [Arava] 1 tab PO DAILY 03/21/18 Theophylline Anhydrous [Jorge-24] 1 cap PO DAILY 03/21/18 Tiotropium Br/Olodaterol HCl [Stiolto Respimat Inhal [place]] 1 puff DAILY hydroCHLOROthiazide [Hydrochlorothiazide*] 25 mg PO DAILY 03/21/18 predniSONE [Deltasone*] 1 tab PO BID 03/21/18 sulfaSALAzine [Sulfasalazine] 1,000 mg PO BID 03/21/18 Amlodipine [Norvasc*] 5 mg PO DAILY #30 tab 03/23/18 Metoprolol Tartrate [Lopressor*] 1 tab PO BID #60 tab 03/23/18 - Past Medical/Surgical History Has patient received pneumonia vaccine in the past: Yes Diabetic: No -: COPD -: HTN -: Rheumatoid Arthritis -: heart attack -: cholecystectomy -: Elbow surg - left -: Tubal ligation - Social History Smoking Status: Former smoker Alcohol use: Yes CD- Drugs: No Caffeine use: Yes Place of Residence: Home Review of Systems 10-point ROS is otherwise unremarkable Physical Examination - Vital Signs Temperature: 98 F Blood Pressure: 186/78 Pulse: 55 Respirations: 18 Pulse Ox (%): 95 - Physical Exam General: Alert, In no apparent distress, Oriented x3 HEENT: Atraumatic, PERRLA, Mucous membr. moist/pink, EOMI, Sclerae nonicteric Neck: Supple, 2+ carotid pulse no bruit, No LAD, Without JVD or thyroid abnormality Respiratory: Clear to auscultation bilaterally, Normal air movement Cardiovascular: Regular rate/rhythm, Normal S1 S2 Gastrointestinal: Normal bowel sounds, No tenderness Musculoskeletal: No tenderness Integumentary: No rashes Neurological: Normal gait, Normal speech, Normal strength at 5/5 x4 extr, Normal tone, Normal affect Lymphatics: No axilla or inguinal lymphadenopathy - Diagnosis (Problem(s)) (1) Chest pain, rule out acute myocardial infarction Onset Date: 03/22/18 Status: Acute (2) Diastolic dysfunction with acute on chronic heart failure Onset Date: 11/18/17 Status: Acute (3) Drug-induced skin rash Onset Date: 03/22/18 Status: Acute (4) Malignant hypertension Onset Date: 03/22/18 Status: Acute (5) COPD with acute exacerbation Onset Date: 11/18/17 Status: Acute Treatment Summary: Chest pain, rule out acute myocardial infarction (Acute 03/22/18) R07.9 Diastolic dysfunction with acute on chronic heart failure (Acute 11/18/17) I50.33 Drug-induced skin rash (Acute 03/22/18) L27.0 Malignant hypertension (Acute 03/22/18) I10 COPD with acute exacerbation (Acute 11/18/17) J44.1 1. Serial troponins and EKG, remained negative 2. Cardiology consultation, cleared by Cardiology for discharge. Blood pressure better controlled. Medications changed. Discontinued clonidine , increase metoprolol b.i.d. and added amlodipine 5 mg. She will have outpatient follow up with cardiology. Information provided to patient She otherwise remained stable throughout - Disposition Disposition: ROUTINE DISCHARGE Condition: GOOD Consultations: Cardiology Patient Discharge Instructions: These follow up with the primary care physician 1 week. Please follow up with the fiberglass tube molder in 2 weeks, information provided to you. Please return to the emergency room for worsening symptoms Diet: AHA Activity: Ad angel Time Spent Managing Pts Care (In Minutes): 55
== END 2018-03-23 12:19 | disposition home or self-care (01) ==
LOC: ER 16:31 → ERHOLD 18:16 → 2ND 20:14
PROVIDERS: ADMIT Family Medicine; ATTEND Hospitalist
DX: R07.9 Chest pain, unspecified (principal); L27.0 Generalized skin eruption due to drugs and medicaments taken internally; M06.9 Rheumatoid arthritis, unspecified; I11.0 Hypertensive heart disease with heart failure; I50.32 Chronic diastolic (congestive) heart failure; J44.9 Chronic obstructive pulmonary disease, unspecified; Z88.0 Allergy status to penicillin
CPT/HCPCS: 36415; 70450; 71045; 80048; 80053; 80061; 80076; 81003; 81015; 83735; 83880; 84100; 84484; 85025; 85610; 93005; 93306; 93880; 94760; 96374; 99285; G0378; J0360; J1650; J7512

== ENCOUNTER 2020-07-15 12:58 | Emergency (ER) | payer OTHER ==
[2020-07-15 13:55] LABS: Absolute Lymphocytes (CBC) 2.2 K/uL (0.7-4.9); Basophils % 0.2 % (0-1.3); Hematocrit 36.3 % (36.0-45.0); Lymphocytes % 40.3 % (15.3-44.8); MPV 8.5 fL (7.6-11.3); RBC Red Blood Cell Count 4.47 M/uL (3.86-4.86)
[2020-07-15 14:08] LABS: Urine Blood Negative (Negative); Urine Glucose Negative (Negative); Urine Protein Negative (Negative)
[2020-07-15 14:15] LABS: Albumin 3.7 g/dL (3.4-5.0); Bilirubin Direct 0.1 mg/dL (0-0.2); Bilirubin Total 0.4 mg/dL (0.2-1.0); Potassium 3.2 mmol/L (3.5-5.1)
--- NOTE | 2020-07-15 14:36 | RAD REPORT ---
EXAM DESCRIPTION: CT - Abdomen Pelvis W Contrast - 07/15/2020 2:06 pm CLINICAL HISTORY: Abdominal pain/jaundice COMPARISON: none. TECHNIQUE: Computed axial tomography of the abdomen pelvis was obtained. 100 cc Isovue-300 was admin istered intravenously. Oral contrast was not requested which limits evaluation of bowel. All CT scans are performed using dose optimization technique as appropriate and may include automated exposure control or mA/KV adjustment according to patient size. FINDINGS: Cholecystectomy. The common bile duct measures 10 millimeters. Small calcification is present within the pancreatic head. Mild inhomogeneity the pancreatic head. A discrete mass is not seen. The remainder of the pancreas appears unremarkable. Pancreatic duct is nor mal caliber. The liver, spleen, adrenals and right kidney are unremarkable. A small left renal cysts. . There is no evidence of diverticulitis. Normal appendix. No adnexal mass IMPRESSION: Mild prominence of common bile duct. In a patient status post cholecystectomy this can b e physiologic. This should be correlated clinically with appropriate lab values. Mild inhomogeneity of the pancreatic head without visualization of discrete mass. Pancreatic duct is normal caliber. Again this should be correlated clinically and with appropriate lab values. ERCP may helpful for further evaluation
--- NOTE | 2020-07-15 14:55 | EDPHYS ---
Physician Documentation [facility] Name: Vickie Meza Age: 64 yrs Sex: Female : 1955 Arrival Date: 07/15/2020 Time: 13:03 Bed 24 Private MD: Kashmir Leon E ED Physician Stoney Hoover HPI: 07/15 13:55 This 64 yrs old Female presents to ER via Ambulatory with complaints of rn Jaundice. 13:55 Reports noticed yellowing of skin today, does not feel ill, + 10-15 pound unintentional rn weight loss, no known liver problems, doesn't take tylenol, doesn't drink ETOH, no hx of hepatitis. Has had gallbladder removed.. Onset: The symptoms/episode began/occurred at an unknown time. Severity of symptoms: At their worst the symptoms were mild in the emergency department the symptoms are unchanged. The patient has not experienced similar symptoms in the past. The patient has not recently seen a physician. Historical: - Allergies: 13:11 PENICILLINS; ph 13:11 HYDRALAZINE; ph - PMHx: 13:11 Arthritis; COPD; Hypertension; ph - PSHx: 13:11 Cholecystectomy; Tubal ligation; elbow surgery; ph - Immunization history:: Client reports having NOT received the Covid vaccine. - Social history:: Smoking status: Patient denies any tobacco usage or history of. - Family history:: not pertinent. - Hospitalizations: : No recent hospitalization is reported. ROS: 13:55 Constitutional: + weight loss Eyes: Negative for injury, pain, redness, and discharge, rn Neck: Negative for injury, pain, and swelling, Cardiovascular: Negative for chest pain, palpitations, and edema, Respiratory: Negative for shortness of breath, cough, wheezing, and pleuritic chest pain, Abdomen/GI: Negative for abdominal pain, nausea, vomiting, diarrhea, and constipation, Back: Negative for injury and pain, MS/Extremity: Negative for injury and deformity, Skin: + yellowing of facial skin Neuro: + generalized fatigue Exam: 13:55 Constitutional: This is a well developed, well nourished patient who is awake, alert, rn and in no acute distress. Head/Face: Normocephalic, atraumatic. Eyes: Pupils equal round and reactive to light, extra-ocular motions intact. Lids and lashes normal. Conjunctiva and sclera are non-icteric and not injected. Cornea within normal limits. Periorbital areas with no swelling, redness, or edema. ENT: Mild yellowing under tongue Cardiovascular: Regular rate and rhythm. No pulse deficits. Respiratory: No increased work of breathing, no retractions or nasal flaring. Abdomen/GI: soft, non-tender Skin: + faint yellowing of facial skin, no petechiae MS/ Extremity: Pulses equal, no cyanosis. Neurovascular intact. Full, normal range of motion. Equal circumference. Neuro: Awake and alert, GCS 15, oriented to person, place, time, and situation. Cranial nerves II-XII grossly intact. Motor strength 5/5 in all extremities. Sensory grossly intact. Cerebellar exam normal. Normal gait. Vital Signs: 13:07 BP 136 / 65; Pulse 70; Resp 18; Temp 98.4; Pulse Ox 98% on R/A; Height 5 ft. 4 in. ph (162.56 cm); 14:20 BP 131 / 50; Pulse 62; Resp 16 S; Pulse Ox 98% on R/A; ca1 15:07 BP 131 / 89; Pulse 71; Resp 16 S; Pulse Ox 99% on R/A; ca1 MDM: 13:23 Patient medically screened. rn 14:50 Differential Diagnosis liver failure, pancreas mass. Data reviewed: vital signs, nurses rn notes, lab test result(s), radiologic studies, CT scan, and as a result, I will discharge patient. Counseling: I had a detailed discussion with the patient and/or guardian regarding: the historical points, exam findings, and any diagnostic results supporting the discharge/admit diagnosis, lab results, radiology results, the need for outpatient follow up, to return to the emergency department if symptoms worsen or persist or if there are any questions or concerns that arise at home. Special discussion: I discussed with the patient/guardian in detail that at this point there is no indication for admission to the hospital. It is understood, however, that if the symptoms persist or worsen the patient needs to return immediately for re-evaluation. Based on the history and exam findings, there is no indication for further emergent testing or inpatient evaluation. I discussed with the patient/guardian the need to see the network controller for further evaluation of the symptoms. I discussed with the patient/guardian the need to see the primary care provider for further evaluation of the symptoms. ED course: Bilirubin levels actually normal, ct no acute findings, bile duct within physiologic range s/p cholecystectomy, irregularity of pancreatic head without pancreatic duct obstruction, will dc home with GI f/u for further eval/ERCP.. 07/15 13:37 Order name: Basic Metabolic Panel; Complete Time: 14:15 rn 07/15 13:37 Order name: CBC with Diff; Complete Time: 14:15 rn 07/15 13:37 Order name: Hepatic Function; Complete Time: 14:15 rn 07/15 13:37 Order name: Lipase; Complete Time: 14:15 rn 07/15 14:08 Order name: Urine Dipstick-Ancillary; Complete Time: 14:15 EDOH 07/15 14:24 Order name: CREATININE WHOLE BLOOD; Complete Time: 14:49 EDOH 07/15 13:37 Order name: IV Saline Lock; Complete Time: 13:48 rn 07/15 13:37 Order name: Labs collected and sent; Complete Time: 13:48 rn 07/15 13:37 Order name: CT Abd/Pelvis - IV Contrast Only; Complete Time: 14:49 rn 07/15 13:37 Order name: Urine Dipstick-Ancillary (obtain specimen); Complete Time: 14:07 rn Administered Medications: No medications were administered Disposition: 07/15/20 14:54 Discharged to Home. Impression: Abnormal weight loss, Malaise and fatigue, Person with feared health complaint in whom no diagnosis is made. - Condition is Stable. - Discharge Instructions: Fatigue, Endoscopic Retrograde Cholangiopancreatography (ERCP). - Medication Reconciliation Form, Thank You Letter, Antibiotic Education, Prescription Opioid Use form. - Follow up: Kashmir Ortiz MD; When: As needed; Reason: Recheck today's complaints, Re-evaluation by your physician. - Problem is new. - Symptoms are unchanged. Signatures: Dispatcher [employer] EDMS Stoney Hoover MD MD rn Hall, Patricia, RN RN ph Cyndi Gray RN RN ca1 Corrections: (The following items were deleted from the chart) 15:08 14:54 07/15/2020 14:54 Discharged to Home. Impression: Abnormal weight loss; Malaise ca1 and fatigue; Person with feared health complaint in whom no diagnosis is made. Condition is Stable. Forms are Medication Reconciliation Form, Thank You Letter, Antibiotic Education, Prescription Opioid Use. Follow up: Kashmir Ortiz; When: As needed; Reason: Recheck today's complaints, Re-evaluation by your physician. Problem is new. Symptoms are unchanged. rn
--- NOTE | 2020-07-15 14:55 | ER ---
Nurse's Notes [facility] Name: Vickie Meza Age: 64 yrs Sex: Female : 1955 Arrival Date: 07/15/2020 Time: 13:03 Bed 24 Private MD: Kashmir Leon E Diagnosis: Abnormal weight loss;Malaise and fatigue;Person with feared health complaint in whom no diagnosis is made Presentation: 07/15 13:07 Chief complaint: Patient states: Woke up today and face " looked yellow", denies hx of ph liver problems, also c/o swelling to L cheek area and "dizzy spells" x 1 week. Coronavirus screen: Client denies travel out of the [place] in the last 14 days. At this time, the client does not indicate any symptoms associated with coronavirus-19. Ebola Screen: No symptoms or risks identified at this time. Initial Sepsis Screen: Does the patient meet any 2 criteria? No. Patient's initial sepsis screen is negative. Does the patient have a suspected source of infection? No. Patient's initial sepsis screen is negative. Risk Assessment: Do you want to hurt yourself or someone else? Patient reports no desire to harm self or others. Onset of symptoms was July 15, 2020. 13:07 Method Of Arrival: Ambulatory ph 13:07 Acuity: JULIÁN 3 ph Historical: - Allergies: 13:11 PENICILLINS; ph 13:11 HYDRALAZINE; ph - PMHx: 13:11 Arthritis; COPD; Hypertension; ph - PSHx: 13:11 Cholecystectomy; Tubal ligation; elbow surgery; ph - Immunization history:: Client reports having NOT received the Covid vaccine. - Social history:: Smoking status: Patient denies any tobacco usage or history of. - Family history:: not pertinent. - Hospitalizations: : No recent hospitalization is reported. Screenin:20 Abuse screen: Denies threats or abuse. Denies injuries from another. Nutritional ca1 screening: No deficits noted. Tuberculosis screening: No symptoms or risk factors identified. Fall Risk IV access (20 points). Assessment: 13:20 General: Appears in no apparent distress. comfortable, Behavior is calm, cooperative, ca1 appropriate for age. Pain: Complains of pain in forehead Pain currently is 8 out of 10 on a pain scale. Pain began this morning. Neuro: Level of Consciousness is awake, alert, obeys commands, Oriented to person, place, time, situation. Cardiovascular: Heart tones S1 S2 present Capillary refill < 3 seconds Patient's skin is warm and dry. Respiratory: Airway is patent Respiratory effort is even, unlabored, Respiratory pattern is regular, symmetrical, Breath sounds are clear bilaterally. GI: Abdomen is round non-distended, Bowel sounds present X 4 quads. Abd is soft and non tender X 4 quads. : No signs and/or symptoms were reported regarding the genitourinary system. EENT: No signs and/or symptoms were reported regarding the EENT system. Derm: Skin is intact, is healthy with good turgor, Skin is pink, warm \\T\\ dry. normal. Musculoskeletal: Circulation, motion, and sensation intact. Capillary refill < 3 seconds. 14:21 Reassessment: Patient appears in no apparent distress at this time. Patient and/or ca1 family updated on plan of care and expected duration. Pain level reassessed. Patient is alert, oriented x 3, equal unlabored respirations, skin warm/dry/pink. 15:07 Reassessment: Patient appears in no apparent distress at this time. Patient and/or ca1 family updated on plan of care and expected duration. Pain level reassessed. Patient is alert, oriented x 3, equal unlabored respirations, skin warm/dry/pink. Vital Signs: 13:07 BP 136 / 65; Pulse 70; Resp 18; Temp 98.4; Pulse Ox 98% on R/A; Height 5 ft. 4 in. ph (162.56 cm); 14:20 BP 131 / 50; Pulse 62; Resp 16 S; Pulse Ox 98% on R/A; ca1 15:07 BP 131 / 89; Pulse 71; Resp 16 S; Pulse Ox 99% on R/A; ca1 ED Course: 13:03 Patient arrived in ED. mr 13:03 Kashmir Leon MD is Private Physician. mr 13:09 Triage completed. ph 13:12 Cyndi Gray, MANDEEP is Primary Nurse. ca1 13:12 Arm band placed on Patient placed in an exam room. ph 13:20 Patient has correct armband on for positive identification. Placed in gown. Bed in low ca1 position. Call light in reach. Side rails up X 1. Pulse ox on. NIBP on. Warm blanket given. 13:23 Stoney Hoover MD is Attending Physician. rn 13:45 Inserted saline lock: 22 gauge in right antecubital area, using aseptic technique. ca1 Blood collected. 13:45 No provider procedures requiring assistance completed. ca1 14:05 CT Abd/Pelvis - IV Contrast Only In Process Unspecified. EDMS 14:54 Kashmir Ortiz MD is Referral Physician. rn 15:07 IV discontinued, intact, bleeding controlled, No redness/swelling at site. Pressure ca1 dressing applied. Administered Medications: No medications were administered Outcome: 14:54 Discharge ordered by . rn 15:07 Discharged to home ambulatory, with family. ca1 15:07 Condition: stable 15:07 Discharge instructions given to patient, Instructed on discharge instructions, follow up and referral plans. Demonstrated understanding of instructions, follow-up care. 15:08 Patient left the ED. ca1 Signatures: Dispatcher [employer] EDNJ Lynn Fuentes Stoney Hoover MD MD rn Hall, Patricia, RN RN Cyndi Gray RN RN ca1 Corrections: (The following items were deleted from the chart) 13:32 13:20 Derm: Skin is intact, is healthy with good turgor, Skin is pink, warm \\T\\ dry. ca1 ca1
[2020-07-15 15:59] VITALS: TEMP 98.4
[2020-07-15 16:01] VITALS: BP 131/89; O2SAT 99
== END 2020-07-15 15:08 | disposition home or self-care (01) ==
LOC: ER 12:58
DX: R53.81 Other malaise (principal); R53.83 Other fatigue; R17 Unspecified jaundice; I10 Essential (primary) hypertension; Z88.0 Allergy status to penicillin; Z88.8 Allergy status to other drugs, medicaments and biological substances
CPT/HCPCS: 85025; 80048; 36415; 82565; 80076; 81003; 83690; 74177; Q9967; 99284

== ENCOUNTER 2020-10-17 16:32 | Emergency (ER) | payer OTHER ==
[2020-10-17 18:26] LABS: Absolute Lymphocytes (CBC) 1.3 K/uL (0.7-4.9); Basophils % 1.1 % (0-1.3); Hematocrit 32.9 % (36.0-45.0); MPV 8.1 fL (7.6-11.3); RBC Red Blood Cell Count 3.98 M/uL (3.86-4.86)
[2020-10-17 18:42] LABS: ALT/SGPT 18 U/L (12-78); AST/SGOT 14 U/L (15-37); Albumin 3.7 g/dL (3.4-5.0); Alkaline Phosphatase 109 U/L (45-117); BUN Blood Urea Nitrogen 12 mg/dL (7-18); Bicarbonate 26 mmol/L (21-32); Bilirubin Direct < 0.1 mg/dL (0-0.2); Bilirubin Total 0.4 mg/dL (0.2-1.0); Glucose Level 106 mg/dL (74-106); Lipase 110 U/L (73-393); Potassium 3.5 mmol/L (3.5-5.1); Protein, Total 7.9 g/dL (6.4-8.2); Sodium Level 141 mmol/L (136-145)
[2020-10-17] MEDS ORDERED: MORPHINE 4 MG/ML SYR ONE (19:01)
[2020-10-17] MEDS ORDERED: ONDANSETRON 4 MG/2 ML VIAL ONE (19:02)
--- NOTE | 2020-10-17 20:04 | RAD REPORT ---
EXAM DESCRIPTION: CT - Abdomen Pelvis W Contrast - 10/17/2020 7:48 pm CLINICAL HISTORY: right lower abdominal pain COMPARISON: No comparisonsAbdomen Pelvis W Contrast dated 07/15/2020 TECHNIQUE: Biphasic, helical CT imaging of the abdomen and pelvis was performed following 100 ml non -ionic IV contrast. No oral contrast administered. All CT scans are performed using dose optimization technique as appropriate and may include automated exposure control or mA/KV adjustment according to patient size. FINDINGS: No suspicious findings in the lung bases. The liver, spleen, and pancreas show no suspicious findings. Gallbladder is absent. Biliary tree dila tation is not outside of normal range for post cholecystectomy status. Symmetric renal function is seen with no hydronephrosis or suspicious renal mass. No pyelonephritis o r acute parenchymal process. No bladder abnormalities. No adrenal abnormalities. Uterus and ovaries a re normal for age. No dilated bowel loops or bowel wall thickening. Appendix is normal. No active GI process identifiabl e. No free air, free fluid or inflammatory stranding. No hernia, mass or bulky lymphadenopathy. Right inguinal region shows no hematoma, lymphadenopathy, stranding or acute finding. No suspicious bony findings. IMPRESSION: Contrast enhanced CT abdomen and pelvis showing no significant or suspicious finding.
--- NOTE | 2020-10-17 20:20 | ER ---
Nurse's Notes [facility] Name: Vickie Meza Age: 64 yrs Sex: Female : 1955 Arrival Date: 10/17/2020 Time: 16:37 Bed Waiting Private MD: Diagnosis: Lower abdominal pain, unspecified Presentation: 10/17 18:00 Chief complaint: Patient states: RLQ pain radiates to back X 3 days, worse today, no iw vomiting or diarrhea. Coronavirus screen: At this time, the client does not indicate any symptoms associated with coronavirus-19. Ebola Screen: Patient negative for fever greater than or equal to 101.5 degrees Fahrenheit, and additional compatible Ebola Virus Disease symptoms Patient denies exposure to infectious person. Patient denies travel to an Ebola-affected area in the 21 days before illness onset. No symptoms or risks identified at this time. Initial Sepsis Screen: Does the patient meet any 2 criteria? No. Patient's initial sepsis screen is negative. Does the patient have a suspected source of infection? No. Patient's initial sepsis screen is negative. Risk Assessment: Do you want to hurt yourself or someone else? Patient reports no desire to harm self or others. Onset of symptoms was October 14, 2020. 18:00 Method Of Arrival: Wheelchair iw 18:00 Acuity: JULIÁN 3 iw 18:00 Acuity: JULIÁN 3 iw Historical: - Allergies: 18:02 HYDRALAZINE; iw 18:02 PENICILLINS; iw - Home Meds: 18:02 clonidine HCl 0.1 mg Oral tab 1 tab 3 times per day [Active]; gabapentin 300 mg Oral iw cap 1 cap twice a day [Active]; hydrochlorothiazide 25 mg Oral tab 1 tab once daily [Active]; metoprolol tartrate 25 mg Oral tab 1 tab 2 times per day [Active]; oxybutynin chloride 5 mg Oral tab 1 tab 2 times per day [Active]; ProAir HFA 90 mcg/actuation inhalation HFAA 1 puff q 6 hr s prnjh [Active]; sulfasalazine 500 mg Oral tab 2 tab twice a day [Active]; - PMHx: 18:02 Arthritis; COPD; Hypertension; iw - PSHx: 18:02 Cholecystectomy; tubal; iw - Immunization history:: Client reports having NOT received the Covid vaccine. - Social history:: Smoking status: Patient reports the use of cigarette tobacco products, smokes one-half pack cigarettes per day. Screenin:57 Abuse screen: Denies threats or abuse. Denies injuries from another. Nutritional iw screening: No deficits noted. Tuberculosis screening: No symptoms or risk factors identified. Fall Risk None identified. Assessment: 18:00 General: Appears in no apparent distress. Behavior is calm, cooperative. Pain: iw Complains of pain in right lower quadrant Pain radiates to back. Neuro: Level of Consciousness is awake, alert, obeys commands, Oriented to person, place, time, situation, Moves all extremities. Full function. Cardiovascular: Patient's skin is warm and dry. Respiratory: Respiratory effort is even, unlabored, Respiratory pattern is regular, symmetrical. GI: Abdomen is non-distended, Abd is soft Reports lower abdominal pain. Derm: Skin is intact, is healthy with good turgor. 20:57 Reassessment: Patient is alert, oriented x 3, equal unlabored respirations, skin bb warm/dry/pink. pt verbalized understanding of and agrees to plan of care discharge instructions given pt assisted to exit via wheelchair accompanied by family. Vital Signs: 18:00 BP 170 / 60; Pulse 80; Resp 16; Temp 98.4; Pulse Ox 100% on R/A; Weight 84.37 kg; Pain iw 10/10; 20:57 BP 145 / 54; Pulse 79; Resp 18 S; Temp 99.2(O); Pulse Ox 99% on R/A; bb ED Course: 16:37 Patient arrived in ED. ds1 18:02 Triage completed. iw 18:03 Arm band placed on. iw 18:14 Inserted saline lock: 22 gauge in left. aa5 18:34 Robbie Vidal PA is PHCP. jmm 18:34 Alphonse Morales MD is Attending Physician. jmm 19:48 CT Abd/Pelvis - IV Contrast Only In Process Unspecified. EDMS 20:18 Marcel Marie MD is Referral Physician. jmm 20:18 Fawad Martinez MD is Referral Physician. jmm 20:58 No provider procedures requiring assistance completed. IV discontinued, intact, bb bleeding controlled, No redness/swelling at site. Pressure dressing applied. Administered Medications: 18:42 Drug: morphine 4 mg Route: IVP; Site: right antecubital; iw 20:58 Follow up: Response: No adverse reaction; RASS: Alert and Calm (0) bb 18:42 Drug: Zofran (Ondansetron) 4 mg Route: IVP; Site: right antecubital; iw 20:58 Follow up: Response: No adverse reaction bb Outcome: 20:19 Discharge ordered by . manas 20:59 Discharged to home via wheelchair, with family. bb 20:59 Condition: stable 20:59 Discharge instructions given to patient, Instructed on discharge instructions, follow up and referral plans. medication usage, Demonstrated understanding of instructions, follow-up care, medications, Prescriptions given X 1. 20:59 Patient left the ED. bb Signatures: Dispatcher [employer] EDMS Robbie Vidal PA PA jmm Sanford, Demi ds1 Ana Lilia Concepcion RN Laura Williamson RN Nova Frazier RN RN aa5
--- NOTE | 2020-10-17 20:20 | EDPHYS ---
Physician Documentation [facility] Name: Vickie Meza Age: 64 yrs Sex: Female : 1955 Arrival Date: 10/17/2020 Time: 16:37 Bed Waiting Private MD: ED Physician Alphonse Morales HPI: 10/17 20:14 This 64 yrs old Female presents to ER via Wheelchair with complaints of m Abdominal Pain. 20:14 The patient presents with abdominal pain. Onset: The symptoms/episode began/occurred jmm gradually, 3 day(s) ago. The symptoms do not radiate. Associated signs and symptoms: Pertinent negatives: nausea and vomiting, anorexia, blood in stools, constipation, diarrhea, dysuria, fever, headache, hematuria, nausea, palpitations, shortness of breath, vaginal discharge, vomiting, vomiting blood. The symptoms are described as achy. Modifying factors: The symptoms are alleviated by nothing, the symptoms are aggravated by Movement. The patient has not experienced similar symptoms in the past. Historical: - Allergies: 18:02 HYDRALAZINE; iw 18:02 PENICILLINS; iw - Home Meds: 18:02 clonidine HCl 0.1 mg Oral tab 1 tab 3 times per day [Active]; gabapentin 300 mg Oral iw cap 1 cap twice a day [Active]; hydrochlorothiazide 25 mg Oral tab 1 tab once daily [Active]; metoprolol tartrate 25 mg Oral tab 1 tab 2 times per day [Active]; oxybutynin chloride 5 mg Oral tab 1 tab 2 times per day [Active]; ProAir HFA 90 mcg/actuation inhalation HFAA 1 puff q 6 hr s prnjh [Active]; sulfasalazine 500 mg Oral tab 2 tab twice a day [Active]; - PMHx: 18:02 Arthritis; COPD; Hypertension; iw - PSHx: 18:02 Cholecystectomy; tubal; iw - Immunization history:: Client reports having NOT received the Covid vaccine. - Social history:: Smoking status: Patient reports the use of cigarette tobacco products, smokes one-half pack cigarettes per day. ROS: 20:14 Constitutional: Negative for fever, chills, and weight loss, Cardiovascular: Negative jm for chest pain, palpitations, and edema, Respiratory: Negative for shortness of breath, cough, wheezing, and pleuritic chest pain. 20:14 Abdomen/GI: Positive for abdominal pain. 20:14 All other systems are negative. Exam: 20:14 Constitutional: This is a well developed, well nourished patient who is awake, alert, jmm and in no acute distress. Head/Face: atraumatic. Eyes: EOMI, no conjunctival erythema appreciated ENT: Moist Mucus Membranes Neck: Trachea midline, Supple Chest/axilla: Normal chest wall appearance and motion. Cardiovascular: Regular rate and rhythm. No edema appreciated Respiratory: Normal respirations, no respiratory distress appreciated 20:14 Back: Normal ROM Skin: General appearance color normal MS/ Extremity: Moves all extremities, no obvious deformities appreciated, no edema noted to the lower extremities Neuro: Awake and alert, normal gait Psych: Behavior is normal, Mood is normal, Patient is cooperative and pleasant 20:14 Abdomen/GI: Inspection: abdomen appears normal, Bowel sounds: normal, Palpation: soft, mild abdominal tenderness, in the right lower quadrant. Vital Signs: 18:00 BP 170 / 60; Pulse 80; Resp 16; Temp 98.4; Pulse Ox 100% on R/A; Weight 84.37 kg; Pain iw 11/16; 20:57 BP 145 / 54; Pulse 79; Resp 18 S; Temp 99.2(O); Pulse Ox 99% on R/A; bb MDM: 20:10 Patient medically screened. [facility] 20:17 Data reviewed: vital signs, nurses notes. Counseling: I had a detailed discussion with [facility] the patient and/or guardian regarding: the historical points, exam findings, and any diagnostic results supporting the discharge/admit diagnosis, radiology results, the need for outpatient follow up, to return to the emergency department if symptoms worsen or persist or if there are any questions or concerns that arise at home. 10/17 18:03 Order name: Basic Metabolic Panel 10/17 18: Order name: CBC with Diff; Complete Time: 19:50 10/17 18: Order name: Hepatic Function 10/17 18:03 Order name: Lipase; Complete Time: 19:51 10/17 18:03 Order name: Basic Metabolic Panel; Complete Time: 19:51 EDOH 10/17 18:04 Order name: Liver (Hepatic) Function; Complete Time: 19:51 EDOH 10/17 18:03 Order name: IV Saline Lock; Complete Time: 18:14 iw 10/17 18:03 Order name: Labs collected and sent; Complete Time: 18:14 iw 10/17 18:34 Order name: CT Abd/Pelvis - IV Contrast Only; Complete Time: 20:05 [facility] Administered Medications: 18:42 Drug: morphine 4 mg Route: IVP; Site: right antecubital; iw 20:58 Follow up: Response: No adverse reaction; RASS: Alert and Calm (0) bb 18:42 Drug: Zofran (Ondansetron) 4 mg Route: IVP; Site: right antecubital; iw 20:58 Follow up: Response: No adverse reaction bb Disposition: 22:08 Co-signature as Attending Physician, Alphonse Morales MD I agree with the assessment and kdr plan of care. Disposition Summary: 10/17/20 20:19 Discharge Ordered Location: Home [facility] Condition: Stable jm Diagnosis - Lower abdominal pain, unspecified jm Followup: [facility] - With: Marcel Marie MD - When: 2 - 3 days - Reason: Recheck today's complaints, Continuance of care, Re-evaluation by your physician Followup: [facility] - With: Fawad Martinez MD - When: 2 - 3 days - Reason: Recheck today's complaints, Continuance of care, Re-evaluation by your physician Discharge Instructions: - Discharge Summary Sheet [facility] - Abdominal Pain, Adult [facility] Forms: - Medication Reconciliation Form [facility] - Thank You Letter [facility] - Antibiotic Education [facility] - Prescription Opioid Use [facility] Prescriptions: - orphenadrine citrate 100 mg Oral Tablet Sustained Release - take 1 tablet by ORAL route 2 times per day As needed; 20 tablet; Refills: 0, [facility] Product Selection Permitted Signatures: Dispatcher [employer] Alphonse Payan MD MD kdr Mickail, Joel, PA PA [facility] Laura Camp, RN RN iw Ana Lilia Concepcion RN bb
[2020-10-17 21:17] VITALS: BP 145/54; TEMP 99.2; O2SAT 99
== END 2020-10-17 20:59 | disposition home or self-care (01) ==
LOC: ER 16:32
DX: R10.31 Right lower quadrant pain (principal); I10 Essential (primary) hypertension; J44.9 Chronic obstructive pulmonary disease, unspecified; F17.210 Nicotine dependence, cigarettes, uncomplicated; Z88.0 Allergy status to penicillin; Z88.8 Allergy status to other drugs, medicaments and biological substances
CPT/HCPCS: 85025; 80048; 36415; 80076; 83690; 74177; 96375; 96374; 99284; Q9967; J2405

== ENCOUNTER 2021-05-26 07:57 | Day surgery (SDC) | payer OTHER ==
[2021-04-30 14:58] LABS: Absolute Lymphocytes (CBC) 1.6 K/uL (0.7-4.9); Hematocrit 32.9 % (36.0-45.0); Lymphocytes % 53.9 % (15.3-44.8); MPV 7.4 fL (7.6-11.3); RBC Red Blood Cell Count 4.07 M/uL (3.86-4.86)
[2021-04-30 15:12] LABS: Potassium 3.9 mmol/L (3.5-5.1)
[2021-05-26] MEDS ORDERED: Ringers Lactate 1,000 ML IV ONE (08:24)
[2021-05-26] MEDS ORDERED: FENTANYL CITR 100 MCG/2 ML ONE (10:07)
[2021-05-26] MEDS ORDERED: propofoL 200 MG/20 ML VIAL IV ONE (10:07)
[2021-05-26] MEDS ORDERED: LIDOCAINE 2% MPF 5 ML VIAL ONE (10:07)
[2021-05-26] MEDS ORDERED: MIDAZOLAM HCL 2 MG/2 ML INJ ONE (10:07)
[2021-05-26] MEDS ORDERED: BUPIVACAINE 0.5% PF 10 ML VIAL ONE (10:24)
[2021-05-26] MEDS: CLINDAMYCIN PHOSPHATE 600 MG in NA CHLORIDE 0.9% 50 ML IV ONE ×2 (10:42→11:19)
[2021-05-26] MEDS ORDERED: KETOROLAC 30 MG/ML INJ ONE ×2 (11:07→12:07)
[2021-05-26] MEDS ORDERED: dexAMETHasone 10 MG/ML VIAL ONE (11:07)
--- NOTE | 2021-05-26 12:24 | P.BOP ---
Preoperative diagnosis: left elbow mass Postoperative diagnosis: same Primary procedure: left elbow mass excisional biopsy Estimated blood loss: 20ccs Specimen: sent Anesthesia: General Complications: None Transferred to: Recovery Room Condition: Good
[2021-05-26] MEDS ORDERED: ONDANSETRON 4 MG/2 ML VIAL ONE (12:49)
[2021-05-26 12:54] VITALS: O2SAT 97
[2021-05-26 14:27] VITALS: BP 125/49; TEMP 97.8
--- NOTE | 2021-05-26 23:58 | OP ---
Date of Procedure: 05/26/2021 Surgeon: Dallas Luong MD Preoperative Diagnosis: Left elbow mass. Postoperative Diagnosis: Left elbow mass. Procedure Performed: Excisional biopsy of left elbow mass. Estimated Blood Loss: 20 cc. Complications: There were no complications. Pathology Specimens: This mass is sent to pathology. Indications For Operation: Ms. Meza arrived to see me with complaints of this large mass on her elbow. It is quite large, does not have any erythema and appears to be at least partially solid and partially fluid-filled. It does not appear to be consistent with an infection or simple olecranon bu rsitis, may be a hematoma, but the exact etiology is unclear. It does appear to be somewhat mobile w ith respect to the skin. The risks, benefits, and alternatives to different methods of treating it h as been discussed with the patient. At this time, we will proceed with excisional biopsy. Risks of this particular procedure were discussed with her. She states she understands things as presented an d wished to proceed. Description Of Procedure: The patient was taken to the operating room, placed in supine position. G eneral anesthesia was obtained by the staff. Following this, she was then rolled right side down wit h an axillary roll on a cam bag. All of her bony prominences were properly positioned, and her arm was draped over 2 pillows that she secured. After this, her left upper extremity was then prepped an d draped in the usual sterile fashion for the procedure. A sterile tourniquet was then placed. The arm was then elevated, but not exsanguinated. A tourniquet was raised. A standard incision was made centered at the mass including some more distal and more proximal extension. This was taken down th rough the skin that appears to be well encapsulated with a good plane being able to be developed. Th is plane was then developed from a 6 o'clock to 12 o'clock fashion starting distally and proceeding a long the more radial aspect. This was removed using combination of finger pressure, scissors, scalpe l, and hemostats. This progresses around until approximately the 1 o'clock position where great care was taken to avoid any injury to possibility of ulnar nerve involvement. It was then extended from the 6 o'clock up to the 4 o'clock position and then it was gently removed from the deep surface along the radial aspect until we are nearing the region of the ulnar nerve. After this is attached by a s mall pedicle in approximately the 2 o'clock to 3 o'clock position, this is very carefully and meticul ously dissected to avoid any entrance into the region of the ulnar nerve. After this was removed int act, appears to be encapsulated the wound was copiously irrigated and a portion of skin was removed a s it was quite expanded by the mass, it was then closed using horizontal mattress sutures and placed in a very well-padded sterile dressing as well as posterior splint. The patient was then awakened an d taken to the recovery room in good condition. There were no complications. /AMELIA Voice ID: [id number] Report ID: [id number]
== END 2021-05-26 14:00 | disposition home or self-care (01) ==
LOC: OR 07:57
PROVIDERS: ATTEND Orthopaedic Surgery
PROC: 0JBH0ZX Excision of Left Lower Arm Subcutaneous Tissue and Fascia, Open Approach, Diagnostic (ICD-10-PCS; principal; 2021-05-26 10:00)
DX: R22.32 Localized swelling, mass and lump, left upper limb (principal); I10 Essential (primary) hypertension; U07.1 COVID-19
CPT/HCPCS: 93005; 85025; 80048; 36415; 88304; 11406; U0003; J2704; J2250; J3010; J1100; S0077; J7120; J2405; 88305

== ENCOUNTER 2021-07-24 11:53 | Emergency (ER) | payer OTHER ==
--- OUTSIDE RECORDS SUMMARY | 2021-07-24 11:56 | XMS REPORT | Continuity of Care Document ---
:1955 Author Organization [facility] t Address [address] [place] [address] Dr. Husain [address] [place] [id number] Care Team Providers Name Role Phone Unavailable Unavailable Unavailable Problems This patient has no known problems. Allergies, Adverse Reactions, Alerts This patient has no known allergies or adverse reactions. Medications This patient has no known medications. Procedures This patient has no known procedures. Encounters Start End Encounter Admission Attending Care Care Encounter Source Date/Time Date/Time Type Type Clinicians Facility Department ID 2021-04-10 Outpatient [facility] [id number] Common 08:46:02 [facility] Results This patient has no known results.
[2021-07-24] MEDS ORDERED: KETOROLAC 30 MG/ML INJ ONE (13:25)
[2021-07-24] MEDS ORDERED: METHYLPREDNISOLONE 125 MG INJ ONE (13:25)
--- NOTE | 2021-07-24 13:26 | RAD REPORT ---
EXAM DESCRIPTION: RAD - Elbow Right 3 View - 07/24/2021 1:16 pm CLINICAL HISTORY: PAIN COMPARISON: No comparisons FINDINGS/IMPRESSION: No acute fracture. No malalignment. Degenerative changes are present along the olecranon.
--- NOTE | 2021-07-24 13:40 | ER ---
Nurse's Notes [facility] Name: Vickie Meza Age: 65 yrs Sex: Female : 1955 Arrival Date: 07/24/2021 Time: 11:55 Bed 10 Private MD: Kashmir Leon E Diagnosis: Polyarthritis, unspecified Presentation: 07/24 12:16 Chief complaint: Patient states: gilmar arm pain that is worse to right arm. Pt states "my aa5 arms are hurt worse when I try to lift them up". Pt denies any numbness or tingling Denies any neck pain. Coronavirus screen: At this time, the client does not indicate any symptoms associated with coronavirus-19. Ebola Screen: Patient denies travel to an Ebola-affected area in the 21 days before illness onset. Initial Sepsis Screen: Does the patient meet any 2 criteria? No. Patient's initial sepsis screen is negative. Does the patient have a suspected source of infection? No. Patient's initial sepsis screen is negative. Risk Assessment: Do you want to hurt yourself or someone else? Patient reports no desire to harm self or others. Onset of symptoms was June 2021. 12:16 Acuity: JULIÁN 3 aa5 12:16 Method Of Arrival: Ambulatory aa5 Triage Assessment: 13:30 General: Appears in no apparent distress. Behavior is calm, cooperative. iw Historical: - Allergies: 12:15 HYDRALAZINE; aa5 12:15 PENICILLINS; aa5 - PMHx: 12:15 Arthritis; COPD; Hypertension; aa5 12:15 CHF; Myocardial infarction; aa5 12:32 Left carotid blockage; aa5 - PSHx: 12:15 Cholecystectomy; tubal; aa5 - Immunization history:: Adult Immunizations unknown. - Social history:: Smoking status: Patient denies any tobacco usage or history of. - Family history:: not pertinent. Screenin:32 Abuse screen: Denies threats or abuse. Denies injuries from another. Nutritional iw screening: No deficits noted. Tuberculosis screening: No symptoms or risk factors identified. Fall Risk None identified. Assessment: 13:25 General: Appears in no apparent distress. Behavior is calm, cooperative. Pain: iw Complains of pain in right arm and left arm. Neuro: Level of Consciousness is awake, alert, obeys commands, Oriented to person, place, time, situation, Moves all extremities. Cardiovascular: Thorax Patient's skin is warm and dry. Respiratory: Respiratory effort is even, unlabored, Respiratory pattern is regular. Vital Signs: 12:16 BP 131 / 64; Pulse 64; Resp 18 S; Temp 98.9(O); Pulse Ox 99% on R/A; Weight 76.2 kg aa5 (R); Height 5 ft. 4 in. (162.56 cm) (R); 12:16 Body Mass Index 28.84 (76.20 kg, 162.56 cm) aa5 ED Course: 11:55 Patient arrived in ED. as 11:55 Kashmir Leon MD is Private Physician. as 12:15 Arm band placed on. aa5 12:18 Triage completed. aa5 12:21 Cedric Angel MD is Attending Physician. ma2 13:10 Laura Camp, RN is Primary Nurse. iw 13:17 XRAY Elbow RIGHT 3 view In Process Unspecified. EDMS 13:57 Elbow Left 3 View XRAY In Process Unspecified. EDMS 14:00 Patient has correct armband on for positive identification. iw 14:33 No provider procedures requiring assistance completed. Patient did not have IV access iw during this emergency room visit. Administered Medications: 13:26 Not Given (Duplicate Order): TORadol (ketorolac) 30 mg IVP once iw 13:27 Not Given (Duplicate Order): MethylPrednisoLONE 125 mg IVP once iw 13:27 Drug: TORadol (ketorolac) 30 mg Route: IM; Site: left ventrogluteal; iw 14:30 Follow up: Response: No adverse reaction; Pain is decreased iw 13:27 Drug: MethylPREDNISolone Sodium Succinate 125 mg Route: IM; Site: left vastus lateralis;iw 14:36 Follow up: Response: No adverse reaction; Pain is decreased iw Medication: 14:38 VIS not applicable for this client. iw Outcome: 13:39 Discharge ordered by . ma2 14:33 Discharged to home ambulatory, with family. iw 14:33 Condition: good 14:33 Discharge instructions given to patient, Instructed on discharge instructions, follow up and referral plans. medication usage, Demonstrated understanding of instructions, follow-up care, medications, Prescriptions given X 2. 14:34 Patient left the ED. iw Signatures: Dispatcher [employer] EDLe Kee Conrado, Laura, MANDEEP RN iw Nova Hawkins RN RN aa5 Cedric Angel MD MD ma2
--- NOTE | 2021-07-24 13:40 | EDPHYS ---
Physician Documentation [facility] Name: Vickie Meza Age: 65 yrs Sex: Female : 1955 Arrival Date: 07/24/2021 Time: 11:55 Bed 10 Private MD: Kashmir Leon E ED Physician Cedric Angel HPI: 07/24 13:38 This 65 yrs old Female presents to ER via Ambulatory with complaints of Arm Pain. ma2 13:38 Associated signs and symptoms: Pertinent negatives: erythema, numbness, swelling, ma2 vomiting, warmth. Severity of symptoms: At their worst the symptoms were mild, in the emergency department the symptoms are unchanged. Patient has a history of arthritis chronic, bilateral elbow pain got worse over the last few weeks to month, denies trauma or any new symptom, no fever.. Historical: - Allergies: 12:15 HYDRALAZINE; aa5 12:15 PENICILLINS; aa5 - PMHx: 12:15 Arthritis; COPD; Hypertension; aa5 12:15 CHF; Myocardial infarction; aa5 12:32 Left carotid blockage; aa5 - PSHx: 12:15 Cholecystectomy; tubal; aa5 - Immunization history:: Adult Immunizations unknown. - Social history:: Smoking status: Patient denies any tobacco usage or history of. - Family history:: not pertinent. ROS: 13:38 Constitutional: Negative for fever, chills, and weight loss. ma2 13:38 All other systems are negative. Exam: 13:38 Constitutional: This is a well developed, well nourished patient who is awake, alert, ma2 and in no acute distress. ENT: Nares patent. No nasal discharge, no septal abnormalities noted. Tympanic membranes are normal and external auditory canals are clear. Oropharynx with no redness, swelling, or masses, exudates, or evidence of obstruction, uvula midline. Mucous membranes moist. Neck: Trachea midline, no thyromegaly or masses palpated, and no cervical lymphadenopathy. Supple, full range of motion without nuchal rigidity, or vertebral point tenderness. No Meningismus. Chest/axilla: Normal chest wall appearance and motion. Nontender with no deformity. No lesions are appreciated. Cardiovascular: Regular rate and rhythm with a normal S1 and S2. No gallops, murmurs, or rubs. Normal PMI, no JVD. No pulse deficits. Respiratory: Lungs have equal breath sounds bilaterally, clear to auscultation and percussion. No rales, rhonchi or wheezes noted. No increased work of breathing, no retractions or nasal flaring. Abdomen/GI: Soft, non-tender, with normal bowel sounds. No distension or tympany. No guarding or rebound. No evidence of tenderness throughout. Back: No spinal tenderness. No costovertebral tenderness. Full range of motion. MS/ Extremity: There is diffuse bilateral hand wrist and elbow arthritis, with limited range of motion, mild tenderness no signs of septic arthritis no effusion, otherwise pulses equal, no cyanosis. Neurovascular intact. Full, normal range of motion. Neuro: Awake and alert, GCS 15, oriented to person, place, time, and situation. Cranial nerves II-XII grossly intact. Motor strength 5/5 in all extremities. Sensory grossly intact. Cerebellar exam normal. Normal gait. Vital Signs: 12:16 BP 131 / 64; Pulse 64; Resp 18 S; Temp 98.9(O); Pulse Ox 99% on R/A; Weight 76.2 kg aa5 (R); Height 5 ft. 4 in. (162.56 cm) (R); 12:16 Body Mass Index 28.84 (76.20 kg, 162.56 cm) aa5 MDM: 13:38 Differential diagnosis: contusion, abrasion, tendonitis. Data reviewed: vital signs, ma2 nurses notes. Counseling: I had a detailed discussion with the patient and/or guardian regarding: the historical points, exam findings, and any diagnostic results supporting the discharge/admit diagnosis, the presence of at least one elevated blood pressure reading (>120/80) during this emergency department visit, the need for outpatient follow up. Response to treatment: the patient's symptoms have markedly improved after treatment. 13:39 Patient medically screened. ak2 07/24 13:02 Order name: XRAY Elbow RIGHT 3 view ak2 07/24 13:32 Order name: Elbow Left 3 View XRAY iw Administered Medications: 13:26 Not Given (Duplicate Order): TORadol (ketorolac) 30 mg IVP once iw 13:27 Not Given (Duplicate Order): MethylPrednisoLONE 125 mg IVP once iw 13:27 Drug: TORadol (ketorolac) 30 mg Route: IM; Site: left ventrogluteal; iw 14:30 Follow up: Response: No adverse reaction; Pain is decreased iw 13:27 Drug: MethylPREDNISolone Sodium Succinate 125 mg Route: IM; Site: left vastus lateralis;iw 14:36 Follow up: Response: No adverse reaction; Pain is decreased iw Disposition Summary: 07/24/21 13:39 Discharge Ordered Location: Home ma2 Condition: Stable ma2 Diagnosis - Polyarthritis, unspecified ma2 Followup: ma2 - With: Private Physician - When: Tomorrow - Reason: If symptoms return, Continuance of care Discharge Instructions: - Discharge Summary Sheet ma2 - Arthritis, [id number] ma2 Forms: - Medication Reconciliation Form ma2 - Thank You Letter ma2 - Antibiotic Education ma2 - Prescription Opioid Use ma2 Prescriptions: - Medrol (Giuseppe) 4 mg Oral Tablets, Dose Pack - take 1 tablet by ORAL route as directed - follow package instructions; 1 ma2 packet; Refills: 0, Product Selection Permitted - Diclofenac Sodium 75 mg Oral Tablet Sustained Release - take 1 tablet by ORAL route 2 times per day; 30 tablet; Refills: 0, Product ma2 Selection Permitted Signatures: Dispatcher [employer] Laura Santana RN RN iw Calderon, Audri, RN RN aa5 Cedric Angel MD MD ma2 Corrections: (The following items were deleted from the chart) 13: 13:02 Elbow Right 2 View+RAD.RAD.[email or web address] ordered. LUIZ NOVAKMS
--- NOTE | 2021-07-24 14:04 | RAD REPORT ---
EXAM DESCRIPTION: RAD - Elbow Left 3 View - 07/24/2021 1:55 pm CLINICAL HISTORY: PAIN COMPARISON: No comparisons FINDINGS: No acute fracture. No malalignment. No significant focal degenerative changes. IMPRESSION: No acute osseous abnormality involving the left elbow.
[2021-07-24 15:00] VITALS: BP 131/64; TEMP 98.9; O2SAT 99
== END 2021-07-24 14:34 | disposition home or self-care (01) ==
LOC: ER 11:53
DX: M13.0 Polyarthritis, unspecified (principal); I10 Essential (primary) hypertension; Z88.0 Allergy status to penicillin; Z88.8 Allergy status to other drugs, medicaments and biological substances
CPT/HCPCS: 73080 ×2; 96372; 99283; J2930

== ENCOUNTER 2023-10-18 07:40 | Day surgery (SDC) | payer OTHER ==
[2023-10-13 10:41] LABS: Absolute Eosinophils 0.1 K/uL (0-0.5); Absolute Monocytes 0.4 K/uL (0.1-1.3); Absolute Neutrophil 3.9 K/uL (1.8-8.0); Basophils % 0.7 % (0-1.3); Eosinophils % 1.1 % (0-4.4); Hematocrit 31.8 % (36.0-45.0); Hemoglobin 10.3 g/dL (12.0-15.0); Lymphocytes % 31.2 % (15.3-44.8); MCH 26.3 pg (27.0-35.0); MCHC 32.4 g/dL (32.0-36.0); MCV 81.1 fL (80-100); MPV 7.4 fL (7.6-11.3); Platelets 316 thou/uL (152-406); RBC Red Blood Cell Count 3.92 M/uL (3.86-4.86)
[2023-10-13 10:55] LABS: Anion Gap 9.5 mEq/L (5.0-15.0); Potassium 4.5 mEq/L (3.5-5.1)
--- NOTE | 2023-10-13 16:23 | EKG ---
Test Date: 2023-10-13 Test Time: 10:20:59 Broommaker: SABA MEASUREMENT RESULTS: Intervals: Rate: 76 MI: 174 QRSD: 86 QT: 380 QTc: 427 [place]: P: 67 MI: 174 QRS: 29 T: 71 INTERPRETIVE STATEMENTS: Normal sinus rhythm Anterior infarct, age undetermined Abnormal ECG Compared to ECG 04/30/2021 13:39:11 No significant changes Electronically Signed On 10-13-23 16:22:16 CDT by Chuck Borges
[2023-10-18] MEDS ORDERED: Ringers Lactate 1,000 ML IV ONE (08:02)
[2023-10-18] MEDS ORDERED: propofoL 200 MG/20 ML VIAL IV ONE ×2 (09:13)
[2023-10-18] MEDS ORDERED: LIDOCAINE 1% MPF 5 ML VIAL ONE (09:13)
[2023-10-18 10:42] VITALS: O2SAT 100
[2023-10-18 10:45] VITALS: BP 152/51; TEMP 97.3
== END 2023-10-18 10:26 | disposition home or self-care (01) ==
LOC: OR 07:40
PROVIDERS: ATTEND Internal Medicine Gastroenterology
PROC: 0DBL8ZX Excision of Transverse Colon, Via Natural or Artificial Opening Endoscopic, Diagnostic (ICD-10-PCS; principal; 2023-10-18 09:15)
DX: D50.9 Iron deficiency anemia, unspecified (principal); R63.4 Abnormal weight loss; K64.8 Other hemorrhoids; D12.3 Benign neoplasm of transverse colon; D17.5 Benign lipomatous neoplasm of intra-abdominal organs
CPT/HCPCS: 93005; 85025; 80048; 36415; 88305; 45384; J2704; J2001; J7120

== ENCOUNTER 2024-01-24 07:32 | Day surgery (SDC) | payer OTHER ==
[2024-01-19 11:25] LABS: Absolute Basophils 0.1 K/uL (0-0.5); Absolute Eosinophils 0.1 K/uL (0-0.5); Absolute Monocytes 0.4 K/uL (0.1-1.3); Absolute Neutrophil 3.4 K/uL (1.8-8.0); Basophils % 1.3 % (0-1.3); Eosinophils % 1.8 % (0-4.4); Hematocrit 33.2 % (36.0-45.0); Hemoglobin 10.7 g/dL (12.0-15.0); Lymphocytes % 33.1 % (15.3-44.8); MCH 27.7 pg (27.0-35.0); MCHC 32.3 g/dL (32.0-36.0); MCV 85.9 fL (80-100); Monocytes % 7.5 % (3.3-12.3); Neutrophils % 56.3 % (41.7-73.7); Platelets 243 thou/uL (152-406); RBC Red Blood Cell Count 3.86 M/uL (3.86-4.86); Red Cell Distribution Width 14.8 % (12.1-15.2)
[2024-01-19 11:34] LABS: Anion Gap 4.7 mEq/L (5.0-15.0); Potassium 4.7 mEq/L (3.5-5.1)
[2024-01-24] MEDS ORDERED: LIDOCAINE 2% MPF 5 ML VIAL ONE (07:52)
[2024-01-24] MEDS ORDERED: propofoL 200 MG/20 ML VIAL IV ONE (07:53)
[2024-01-24] MEDS ORDERED: Ringers Lactate 1,000 ML IV ONE (08:01)
[2024-01-24] MEDS: ONDANSETRON 4 MG/2 ML VIAL ONE (09:50)
[2024-01-24 10:49] VITALS: BP 125/72; TEMP 97.1; O2SAT 100
== END 2024-01-24 10:33 | disposition home or self-care (01) ==
LOC: OR 07:32
PROVIDERS: ATTEND Internal Medicine Gastroenterology
PROC: 0DB88ZX Excision of Small Intestine, Via Natural or Artificial Opening Endoscopic, Diagnostic (ICD-10-PCS; 2024-01-24)
PROC: 0DB78ZX Excision of Stomach, Pylorus, Via Natural or Artificial Opening Endoscopic, Diagnostic (ICD-10-PCS; 2024-01-24)
PROC: 0DB68ZX Excision of Stomach, Via Natural or Artificial Opening Endoscopic, Diagnostic (ICD-10-PCS; principal; 2024-01-24 09:15)
DX: D50.9 Iron deficiency anemia, unspecified (principal); R63.0 Anorexia; R63.4 Abnormal weight loss; K29.50 Unspecified chronic gastritis without bleeding; A04.8 Other specified bacterial intestinal infections
CPT/HCPCS: 85025; 80048; 36415; 88312; 88305; 43239; J2704; J2003; J2405; J7120

== ENCOUNTER 2024-12-02 13:07 | Emergency (ER) | payer OTHER ==
[2024-12-02] MEDS ORDERED: MORPHINE 2 MG/ML SYR ONE (13:52)
[2024-12-02] MEDS ORDERED: ONDANSETRON 4 MG/2 ML VIAL ONE (13:53)
[2024-12-02 14:04] LABS: Absolute Lymphocytes (CBC) 1.5 K/uL (0.7-4.9); Hematocrit 32.2 % (36.0-45.0); Hemoglobin 10.8 g/dL (12.0-15.0); MCH 28.4 pg (27.0-35.0); MCHC 33.5 g/dL (32.0-36.0); MCV 84.8 fL (80-100); MPV 7.8 fL (7.6-11.3); Nucleated RBC Absolute Count 0.0 (0-0); Nucleated Red Blood Cells % 0.1 % (0-0); RBC Red Blood Cell Count 3.79 M/uL (3.86-4.86); White Blood Count 5.20 thou/uL (4.3-10.9)
[2024-12-02 14:22] LABS: ALT/SGPT 67.0 U/L (13-56); AST/SGOT 194.0 U/L (15-37); Albumin 3.1 g/dL (3.4-5.0); Albumin/Globulin Ratio 0.6 (1.1-1.8); Alkaline Phosphatase 109.0 U/L (45-117); Anion Gap 11.2 mEq/L (5.0-15.0); BUN Blood Urea Nitrogen 45.0 mg/dL (7-18); Globulin 4.9 g/dL (2.3-3.5); Glucose Level 112.0 mg/dL (74-106); Lipase 23.0 U/L (13-75); Potassium 4.2 mEq/L (3.5-5.1)
--- NOTE | 2024-12-02 14:45 | RAD REPORT ---
EXAMINATION: Hip Left 2 View CLINICAL INDICATION: Female, 69 years old. PAIN COMPARISON: No prior exam. FINDINGS: No acute fracture. No malalignment/dislocation. No significant focal degenerative change. Other: Peripheral vascular calcifications. IMPRESSION: No acute osseous abnormality.
--- NOTE | 2024-12-02 14:46 | RAD REPORT ---
EXAMINATION: Hip Right 2 View CLINICAL INDICATION: Female, 69 years old. PAIN RIGHT COMPARISON: No prior exam. FINDINGS: No acute fracture. No malalignment/dislocation. No significant focal degenerative changes. Other: n/a IMPRESSION: No acute osseous abnormality.
--- NOTE | 2024-12-02 14:59 | RAD REPORT ---
EXAMINATION: Abdomen Pelvis Wo Contrast CLINICAL INDICATION: Female, 69 years old.low back pain TECHNIQUE: CT abdomen and pelvis was performed, without IV contrast, as per department protocol. Axia l, sagittal and coronal reconstructions were obtained. One or more of the following dose reduction techniques were used: Automated exposure control, adjustment of the mA and/or kV according to the pat ient size, and/or iterative reconstruction. Unless otherwise specified, incidental findings do not require dedicated imaging follow-up. [id number]. IV CONTRAST: Not administered. COMPARISON: No prior exams FINDINGS: The lack of intravenous contrast limits the sensitivity of this exam for evaluation of solid visceral organs, vascular structures, and retroperitoneum. LOWER CHEST: No acute process identified. No significant pericardial effusion. Mild circumferential t hickening of the distal esophagus which could reflect esophagitis. UPPER GI: No significant abnormality. LIVER: Hepatomegaly GALLBLADDER/BILE DUCTS: Cholecystectomy. Moderate extrahepatic biliary ductal dilatation. This could be secondary to the post-cholecystectomy state. Recommend correlation with LFT's. If abnormal, consider MRCP for further evaluation. ? PANCREAS: No mass, ductal dilation, or fabricio-pancreatic fluid. SPLEEN: Unremarkable. ADRENALS: No adrenal masses. KIDNEYS AND URETERS: No hydronephrosis. Low density and/or too small to characterize renal lesions wh ich are statistically benign. 2 mm stone in the lower pole left kidney. No ureteral calculi. ABDOMINAL AORTA AND OTHER VESSELS: Moderate atherosclerotic changes without aortic aneurysm. PERITONEUM: No abnormal free fluid. No free air. LYMPH NODES: No pathologic lymphadenopathy. ABDOMINAL WALL: Small fat containing umbilical hernia. SMALL BOWEL/COLON: Small bowel has normal course and caliber. No colonic wall thickening or pericolon ic inflammatory changes. Normal appendix. URINARY BLADDER: Underdistended but grossly unremarkable. REPRODUCTIVE ORGANS: No pathologic process. MUSCULOSKELETAL: No acute or suspicious osseous abnormality. Moderate disc height loss at L5-S1. Face t degenerative changes contribute to moderate bilateral neural foraminal narrowing at L5-S1. Small broad-based disc bulges are also present at L3-4 and L4-5. No significant central spinal stenosis. ADDITIONAL FINDINGS: None. IMPRESSION: No acute findings within the abdomen or pelvis.
--- NOTE | 2024-12-02 15:15 | ER ---
Nurse's Notes [facility] Name: Vickie Meza Age: 69 yrs Sex: Female : 1955 Arrival Date: 12/02/2024 Time: 13:07 Bed 3 Private MD: Diagnosis: Low back pain;Radiculopathy, lumbosacral region Presentation: 12/02 13:53 Chief complaint: Patient states: LOW ABDOMINAL PAIN THAT RADIATESS TO BILAT LEGS, LOW kj2 BACK PAIN X 4 DAYS. Coronavirus screen: Client denies travel out of the [place] in the last 14 days. Ebola Screen: No symptoms or risks identified at this time. Initial Sepsis Screen: Does the patient meet any 2 criteria? No. Patient's initial sepsis screen is negative. Does the patient have a suspected source of infection? No. Patient's initial sepsis screen is negative. Risk Assessment: Do you want to hurt yourself or someone else? Patient reports no desire to harm self or others. Onset of symptoms was December 02, 2024. 13:53 Method Of Arrival: EMS: [facility] kj2 13:53 Acuity: JULIÁN 3 kj2 Triage Assessment: 13:56 General: Appears in no apparent distress. Behavior is cooperative. Pain: Complains of kj2 pain in back, abdomen, right leg and left leg Pain currently is 4 out of 10 on a pain scale. Neuro: Level of Consciousness is awake, alert, obeys commands, Oriented to person, place, time, situation, Appropriate for age. Cardiovascular: Patient's skin is warm and dry. Respiratory: Airway is patent Respiratory effort is even, unlabored. GI: Reports lower abdominal pain. : No signs and/or symptoms were reported regarding the genitourinary system. - Family history:: not pertinent. - Hospitalizations: : No recent hospitalization is reported. Screenin:36 [facility] ED Fall Risk Assessment (Adult) History of falling in the last 3 months, kj2 including since admission No falls in past 3 months (0 pts) Confusion or Disorientation No (0 pts) Intoxicated or Sedated No (0 pts) Impaired Gait No (0 pts) Mobility Assist Device Used No (0 pt) Altered Elimination No (0 pt) Score/Fall Risk Level 0 - 2 = Low Risk Oriented to surroundings, Maintained a safe environment, Educated pt \T\ family on fall prevention, incl call for assistance when getting out of bed, Assessed \T\ reinforced patient's understanding of fall precautions, Hourly rounding (assess needs \T\ fall precautionary measures) done. Abuse screen: Denies threats or abuse. Denies injuries from another. Nutritional screening: No deficits noted. Tuberculosis screening: No symptoms or risk factors identified. Assessment: 14:00 General: SEE TRIAGE ASSESSMENT. kj2 Vital Signs: 13:53 BP 167 / 73; Pulse 65; Resp 20; Temp 98.1; Pulse Ox 98% on R/A; kj2 14:30 BP 158 / 55; Pulse 56; Resp 17; Pulse Ox 100% on R/A; kj2 15:00 BP 149 / 53; Pulse 60; Resp 16; Pulse Ox 99% on R/A; kj2 15:35 BP 160 / 60; Pulse 63; Resp 16; Pulse Ox 98% on R/A; kj2 ED Course: 13:29 Patient arrived in ED. eb 13:29 Stoney Hoover MD is Attending Physician. rn 13:53 Haven Burch RN is Primary Nurse. kj2 13:56 Triage completed. kj2 14:01 Maintain EMS IV. Dressing intact. Good blood return noted. Site clean \T\ dry. Gauge \T\ kj 2 site: 20G RIGHT ac. Flushed with 10 mL NS. 14:27 XRAY Hip LEFT 2 view In Process Unspecified. EDMS 14:27 XRAY Hip RIGHT 2 view In Process Unspecified. EDMS 14:43 Abdomen In Process Unspecified. EDMS 15:36 No provider procedures requiring assistance completed. Patient maintains SpO2 kj2 saturation greater than 95% on room air. 15:36 Patient has correct armband on for positive identification. Bed in low position. Call kj2 light in reach. Side rails up X2. Client placed on continuous cardiac and pulse oximetry monitoring. NIBP monitoring applied. Door closed. Noise minimized. Warm blanket given. Pillow given. Verbal reassurance given. Administered Medications: 14:07 Drug: morphine IVP or IV 2 mg IVP once over 4 mins Route: IVP; Infused Over: 4 mins; bp Site: right forearm; 14:22 Follow up: Response: No adverse reaction kj2 14:07 Drug: Ondansetron IVP 4 mg IVP once; over 2 minutes Route: IVP; Site: right forearm; bp 14:22 Follow up: Response: No adverse reaction kj2 Outcome: 15:14 Discharge ordered by . rn 15:51 Patient left the ED. kj2 Signatures: Dispatcher [employer] Stoney Martins MD MD rn Peltier, Brian, RN RN Lucina Santiago Krystal, RN RN kj2
--- NOTE | 2024-12-02 15:15 | EDPHYS ---
Physician Documentation [facility] Name: Vickie Meza Age: 69 yrs Sex: Female : 1955 Arrival Date: 12/02/2024 Time: 13:07 Bed 3 Private MD: ED Physician Stoney Hoover HPI: 12/02 13:51 This 69 yrs old Female presents to ER via Unassigned with complaints of back pain. rn 13:51 Patient reports 4 days of lower back pain, radiates to bilateral legs. Reports pain in rn bilateral hips when moving legs. Pain is progressive and has gotten worse over the last few days. No weakness of legs. No bowel or bladder issues. No abdominal pain.. 13:52 Reports fall several weeks ago but no recent fall. Reports on that fall she landed on rn her buttocks/back.. - Family history:: not pertinent. - Hospitalizations: : No recent hospitalization is reported. ROS: 13:52 Constitutional: Negative for fever, chills, and weight loss, Neck: Negative for injury, rn pain, and swelling, Cardiovascular: Negative for chest pain, palpitations, and edema, Respiratory: Negative for shortness of breath, cough, wheezing, and pleuritic chest pain, Abdomen/GI: Negative for abdominal pain, nausea, vomiting, diarrhea, and constipation, Back: Positive for lower back pain MS/Extremity: Positive for bilateral hip pain Skin: Negative for injury, rash, and discoloration, Neuro: Negative for headache, weakness, numbness, tingling, and seizure, Exam: 13:52 Constitutional: This is a well developed, well nourished patient who is awake, alert, rn and in no acute distress. Cardiovascular: Regular rate and rhythm. No pulse deficits. Respiratory: No increased work of breathing, no retractions or nasal flaring. Abdomen/GI: Soft, non-tender, no masses or pulsatile masses. No peritoneal signs Back: No spinal tenderness. MS/ Extremity: Pulses equal, no cyanosis. Neurovascular intact. Painful range of motion bilateral hips without gross deformity or shortening. No rotational deformity either. Neuro: Awake and alert, GCS 15, oriented to person, place, time, and situation. Motor strength 5/5 in all extremities. Sensory grossly intact. Vital Signs: 13:53 BP 167 / 73; Pulse 65; Resp 20; Temp 98.1; Pulse Ox 98% on R/A; kj2 14:30 BP 158 / 55; Pulse 56; Resp 17; Pulse Ox 100% on R/A; kj2 15:00 BP 149 / 53; Pulse 60; Resp 16; Pulse Ox 99% on R/A; kj2 15:35 BP 160 / 60; Pulse 63; Resp 16; Pulse Ox 98% on R/A; kj2 MDM: 13:29 Medical Screening Exam initiated rn 15:09 Differential diagnosis: arthritis, chronic back pain, ruptured disc, Radiculopathy, rn disc bulge, disc herniation. Data reviewed: vital signs, nurses notes, lab test result(s), radiologic studies, CT scan, plain films, and as a result, I will discharge patient. Independent interpretation of the following test(s) in the Emergency Department X-Ray: My interpretation is X-ray images left hip negative for acute fracture or dislocation per my interpretation. X-ray images right hip negative for acute fracture or dislocation per my interpretation.. CT Scan: My interpretation is CT abdomen pelvis images negative for urinary calculus per my interpretation. 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 Care significantly affected by the following chronic conditions: Hypertension. Counseling: I had a detailed discussion with the patient and/or guardian regarding the historical points, exam findings, and any diagnostic results supporting the discharge/admit diagnosis, lab results, radiology results, the need for outpatient follow up, to return to the emergency department if symptoms worsen or persist or if there are any questions or concerns that arise at home. Response to treatment: the patient's symptoms have mildly improved after treatment, and as a result, I will discharge patient. Special discussion: I discussed with the patient/guardian in detail that at this point there is no indication for admission to the hospital. It is understood, however, that if the symptoms persist or worsen the patient needs to return immediately for re-evaluation. ED course: CT imaging shows L3-L4, L4-L5, L5-S1 disc bulges and foraminal stenosis that are likely explaining patient's symptomatology of low back pain that radiates to the legs. Patient feels better after medication. Will send home with gabapentin and steroids and given return precautions. Asked patient to avoid extra sugars in her diet while on steroids.. 10/26 13:47 Order name: CBC with Diff; Complete Time: 14:59 rn 12/02 13:47 Order name: CMP; Complete Time: 14:59 rn 12/02 13:47 Order name: Lipase; Complete Time: 14:59 rn 12/02 13:52 Order name: XRAY Hip LEFT 2 view; Complete Time: 14:59 rn 12/02 13:52 Order name: XRAY Hip RIGHT 2 view; Complete Time: 14:59 rn 12/02 14:37 Order name: Abdomen ; Complete Time: 15:01 EDMS 12/02 13:47 Order name: IV Saline Lock; Complete Time: 14:08 rn 12/02 13:47 Order name: Labs collected and sent; Complete Time: 14:08 rn Administered Medications: 14:07 Drug: morphine IVP or IV 2 mg IVP once over 4 mins Route: IVP; Infused Over: 4 mins; bp Site: right forearm; 14:22 Follow up: Response: No adverse reaction kj2 14:07 Drug: Ondansetron IVP 4 mg IVP once; over 2 minutes Route: IVP; Site: right forearm; bp 14:22 Follow up: Response: No adverse reaction kj2 Disposition Summary: 12/02/24 15:14 Discharge Ordered Notes: Location: Home rn Problem: new rn Symptoms: have improved rn Condition: Stable rn Diagnosis - Low back pain rn - Radiculopathy, lumbosacral region rn Followup: rn - With: Private Physician - When: As needed - Reason: Recheck today's complaints, Re-evaluation by your physician Discharge Instructions: - Discharge Summary Sheet rn - Acute Back Pain, Adult rn - Lumbosacral Radiculopathy rn Forms: - Medication Reconciliation Form rn - Antibiotic manager internet - Prescription Opioid Use rn - Patient Portal Instructions rn - Leadership Thank You Letter rn Prescriptions: - gabapentin 100 mg Oral capsule - take 1 capsule ORAL route 2 times per day As needed; 14 capsule; Refills: 0, rn Product Selection Permitted - Medrol (Giuseppe) 4 mg Oral Tablets, Dose Pack - take 1 tablet ORAL route as directed - follow package instructions; 1 packet; rn Refills: 0, Product Selection Permitted Signatures: Dispatcher [employer] EDStoney Mallory MD MD rn Peltier, Brian, RN RN bp Jordan, Krystal RN kj2 Corrections: (The following items were deleted from the chart) 13:48 13:48 CBC+H.LAB.BRZ ordered. EDMS EDMS 13:48 13:48 COMPREHENSIVE METABOLIC PANEL+C.LAB.BRZ ordered. EDMS EDMS 13:48 13:48 LIPASE+C.LAB.BRZ ordered. EDMS EDMS 13:48 13:48 UA Rfx Nickolas Cult if indicated+U.LAB.BRZ ordered. EDMS EDMS 13:48 13:48 Abdomen Pelvis W Con+CT.RAD.BRZ ordered. EDMS EDMS 13:52 13:52 Hip Right 2 View+RAD.RAD.BRZ ordered. EDMS EDMS
[2024-12-02 16:58] VITALS: TEMP 98.1
[2024-12-02 17:01] VITALS: BP 160/60; O2SAT 98
== END 2024-12-02 15:51 | disposition home or self-care (01) ==
LOC: ER 13:07
DX: M54.17 Radiculopathy, lumbosacral region (principal); M54.50 Low back pain, unspecified
CPT/HCPCS: 85025; 36415; 83690; 80053; 74176; 73502 ×2; 96375; 96374; 99284; J2270; J2405